=== PATIENT | female | born 1950 | race Caucasian/White ===

== ENCOUNTER 2018-07-08 14:12 | Inpatient (IN) ==
[2018-07-08] MEDS ORDERED: hydrALAZINE HCl Inj 20 MG/ML Vial IV.PUSH ONE (16:46)
[2018-07-08 17:16] LABS: Baso % (Auto) 0.5 % (0.0-2.0); Eos % (Auto) 0.6 % (0.0-4.0); Hematocrit 44.2 % (35.0-46.0); Hemoglobin 15.3 gm/dL (11.6-15.3); Lymph # (Auto) 1.2 th/mm3 (1.0-4.8); Lymph % (Auto) 15.5 % (9.0-44.0); Mean Corpuscular HGB Conc 34.7 % (32.0-36.0); Mean Corpuscular Hemoglobin 33.3 pg (27.0-34.0); Mean Corpuscular Volume 96.1 fL (80.0-100.0); Mono # (Auto) 0.6 th/mm3 (0.0-0.9); Mono % (Auto) 7.8 % (0.0-8.0); Neut % (Auto) 75.6 % (16.0-70.0); Platelet Count 237 th/mm3 (150-450); Red Cell Distribution Width 12.5 % (11.6-17.2); White Blood Count 7.9 th/mm3 (4.0-11.0)
--- NOTE | 2018-07-08 17:27 | XR ---
EXAM DATE: 07/08/2018 5:19 PM EST AGE/SEX: 67 years / Female INDICATIONS: High blood pressure and headache. CLINICAL DATA: This is the patient's initial encounter. Patient reports that signs and symptoms have been present for 1 day and indicates a pain score of 0/10. MEDICAL/SURGICAL HISTORY: Hypertension. None. COMPARISON: No prior exams available for comparison. FINDINGS: The lungs are clear without infiltrate, nodule, or mass. There is no appreciable pleural e ffusion for technique. Heart and mediastinum are unremarkable. CONCLUSION: No acute cardiopulmonary disease. Electronically signed by: Jacquie Anderson MD Board Certified Radiologist 07/08/2018 5:26 PM EST
[2018-07-08 17:38] LABS: Alanine Aminotransferase 24 U/L (10-53); Anion Gap 9 meq/L (5-15); Aspartate Aminotransferase 16 U/L (15-37); Blood Urea Nitrogen 13 mg/dL (7-18); Carbon Dioxide 22.6 meq/L (21.0-32.0); Chloride 106 meq/L (98-107); Glomerular Filtration Rate 42 mL/min (>89); Glucose,Random 101 mg/dL (74-106); Potassium 3.8 meq/L (3.5-5.1); Sodium 138 meq/L (136-145)
[2018-07-08 17:42] LABS: Alkaline Phosphatase 78 U/L (45-117); Total Protein 7.8 g/dL (6.4-8.2)
[2018-07-08 17:46] LABS: Creatine Kinase 81 U/L (26-192)
[2018-07-08] MEDS ORDERED: Metoprolol Inj 5 MG/5 ML Vial IV.PUSH ONE ×2 (18:14→18:32)
--- NOTE | 2018-07-08 18:41 | ED ---
HPI General Chief complaint: Hypertension Stated complaint: headache Time Seen by Provider: 07/08/18 16:34 History of Present Illness HPI narrative: A 67-year-old female with no reported past medical history, presents today with complaints of uncontrolled hypertension. Patient also reports headache in the right side of her head. She denies any photophobia. She denies any nausea vomiting. She states that she was concerned today because she normally does not get headaches. She had her blood pressure checked and was noted to be extremely elevated and she came here to be evaluated. The patient is currently not on any medications. She does not see any primary care doctor. She states she has had difficulty finding a primary care physician. Related Data Previous Rx's Medication Instructions Recorded acetaminophen 650 mg PO Q4H PRN #14 tab 07/13/18 alprazolam [Xanax] 0.25 mg PO HS PRN #7 tab 07/13/18 aspirin 325 mg PO DAILY #30 tab 07/13/18 clonidine HCl [Catapres] 0.1 mg PO Q6H PRN #30 tab 07/13/18 clopidogrel [Plavix] 75 mg PO DAILY #30 tab 07/13/18 lisinopril 20 mg PO DAILY #60 tab 07/13/18 pravastatin 40 mg PO HS #30 tab 07/13/18 sennosides-docusate sodium [Senna 1 tab PO BID #60 tab 07/13/18 Plus] tramadol [Ultram] 50 mg PO Q4H PRN #14 tab 07/13/18 Allergies Allergy/AdvReac Type Severity Reaction Status Date / Time No Known Allergies Allergy Verified 07/13/18 18:15 [facility] Social History Social History Substance History: No History of Abuse Second Hand Smoke Exposure: No Smoking Status: Former smoker How Often Do You Have a Drink Containing Alcohol: 4 or more times a week Recent Travel in [facility] within the Last 8 Weeks: No Immunization History Tetanus Immunization: >5 Years Course Initial Documented Vital Signs Temperature 98.0 F 07/08/18 14:24 Pulse Rate 100 H 07/08/18 14:24 Respiratory Rate 19 07/08/18 14:24 Blood Pressure 243/119 H 07/08/18 14:24 Pulse Oximetry 98 07/08/18 14:24 Last Documented Vital Signs Temperature 97.9 F 07/13/18 16:00 Pulse Rate 69 07/13/18 16:00 Respiratory Rate 18 07/13/18 16:00 Blood Pressure 200/88 H 07/13/18 16:00 Pulse Oximetry 98 07/13/18 16:00 Sign Out Sign Out Data: Patient Sign Out occurred on 07/08/18 at 19:47. Patient's care was discussed, and care was transferred from Glenroy Castillo MD to Bhavana Crooks. Sign Out Comment: Patient presents with uncontrolled hypertension and headache. Patient has abnormal CT showing subacute stroke versus mass. There is an MRI pending at this time. Patient will be signed out to Dr. Crooks. Pending the results of the MRI, patient will either be admitted to the medicine service in the intensive care unit or the regulatory affairs portfolio leader. Last updated by Glenroy Castillo MD at 07/08/18 19:44 Post-Handoff Eval: 67-year-old female was signed out to me to follow-up on her right MRI report. Patient was seen and worked up by the previous ER physician Dr. Castillo. Decision was to admit the patient to the ICU. However I was told that the regulatory affairs portfolio leader Dr. Velasquez wanted an MRI of the brain given the abnormal CT head report. His plan was that if the MRI showed a stroke the patient should be admitted to the hospitalist and if it was a mass than it should be admitted to him. The MRI report just came back and shows a subacute stroke. The hospitalist will admit the patient to the ICU. Medical Decision Making MDM Narrative Medical decision making narrative: 67-year-old female with no history of being treated at this time, presents here with headache and elevated blood pressure. Patient's blood pressure was over 200 systolic and over 100s diastolic. Patient had a head CT that showed what appears to be subacute infarct versus mass with mass-effect. Case was discussed with Dr. Portillo who recommended we admit to the intensive care unit. I spoke with Dr. Velasquez in the intensive care unit he wanted to get an MRI. He spoke with Dr. Portillo and the discussion was that if the patient had a subacute stroke that it would go to Dr. Portillo and if it was a mass it would be admitted to the regulatory affairs portfolio leader service. Case is signed out to Dr. Crooks she will follow-up on the MRI and disc position as above. Medical Screen Exam Complete: Yes Emergency Medical Condition: Yes Differential Diagnosis Differential Diagnosis: Hypertensive urgency versus emergency versus CVA Lab Data Result diagrams: 07/11/18 02:08 07/09/18 05:35 Lab Results 07/08/18 07/08/18 07/09/18 Range/Units 17:00 17:00 05:35 WBC 7.9 6.1 (4.0-11.0) th/mm3 RBC 4.60 4.54 (4.00-5.30) mil/mm3 Hgb 15.3 14.9 (11.6-15.3) gm/dL POC Hgb (Calc) (11.6-15.3) g/dL Hct 44.2 43.6 (35.0-46.0) % POC Hct (35-46.0) % MCV 96.1 96.1 (80.0-100.0) fL MCH 33.3 32.9 (27.0-34.0) pg MCHC 34.7 34.2 (32.0-36.0) % RDW 12.5 12.4 (11.6-17.2) % Plt Count 237 231 (150-450) th/mm3 MPV 9.0 9.1 (7.0-11.0) fL Neut % (Auto) 75.6 H 94.9 H (16.0-70.0) % Lymph % (Auto) 15.5 4.3 L (9.0-44.0) % [place] % (Auto) 7.8 0.7 (0.0-8.0) % Eos % (Auto) 0.6 0.0 (0.0-4.0) % Baso % (Auto) 0.5 0.1 (0.0-2.0) % Neut # (Auto) 6.0 5.8 (1.8-7.7) th/mm3 Lymph # (Auto) 1.2 0.3 L (1.0-4.8) th/mm3 [place] # (Auto) 0.6 0.0 (0.0-0.9) th/mm3 Eos # (Auto) 0.0 0.0 (0.0-0.4) th/mm3 Baso # (Auto) 0.0 0.0 (0.0-0.2) th/mm3 WBC Differential . . Differential Comment Auto diff final Auto diff final PT (9.8-11.6) sec INR Ratio APTT (23.4-31.7) sec Fibrinogen (227-377) mg/dL POC Sodium (137-144) mmol/L Sodium 138 (136-145) meq/L POC Potassium (3.6-5.0) mmol/L Potassium 3.8 (3.5-5.1) meq/L POC Chloride (102-111) mmol/L Chloride 106 (98-107) meq/L Carbon Dioxide 22.6 (21.0-32.0) meq/L Anion Gap 9 (5-15) meq/L POC BUN (5-21) mg/dL BUN 13 (7-18) mg/dL Creatinine 1.26 H (0.50-1.00) mg/dL POC Creatinine (0.6-1.3) mg/dL Estimated GFR 42 L (>89) mL/min POC Glucose (68-110) mg/dl Random Glucose 101 (74-106) mg/dL Hemoglobin A1c (4.3-6.0) % Calcium 9.0 (8.5-10.1) mg/dL Total Bilirubin 0.6 (0.2-1.0) mg/dL AST 16 (15-37) U/L ALT 24 (10-53) U/L Alkaline Phosphatase 78 (45-117) U/L Total Creatine Kinase 81 (26-192) U/L Troponin I Less than 0.02 L (0.02-0.05) ng/mL Total Protein 7.8 (6.4-8.2) g/dL Albumin 4.0 (3.4-5.0) g/dL Triglycerides (42-150) mg/dL Cholesterol (120-200) mg/dL LDL Cholesterol, Calc (0-99) mg/dL HDL Cholesterol (40.0-60.0) mg/dL Cholesterol/HDL Ratio Ratio Blood Type Blood Type Recheck Antibody Screen 07/09/18 07/09/18 07/09/18 Range/Units 05:35 05:35 08:09 WBC (4.0-11.0) th/mm3 RBC (4.00-5.30) mil/mm3 Hgb (11.6-15.3) gm/dL POC Hgb (Calc) (11.6-15.3) g/dL Hct (35.0-46.0) % POC Hct (35-46.0) % MCV (80.0-100.0) fL MCH (27.0-34.0) pg MCHC (32.0-36.0) % RDW (11.6-17.2) % Plt Count (150-450) th/mm3 MPV (7.0-11.0) fL Neut % (Auto) (16.0-70.0) % Lymph % (Auto) (9.0-44.0) % [place] % (Auto) (0.0-8.0) % Eos % (Auto) (0.0-4.0) % Baso % (Auto) (0.0-2.0) % Neut # (Auto) (1.8-7.7) th/mm3 Lymph # (Auto) (1.0-4.8) th/mm3 [place] # (Auto) (0.0-0.9) th/mm3 Eos # (Auto) (0.0-0.4) th/mm3 Baso # (Auto) (0.0-0.2) th/mm3 WBC Differential Differential Comment PT (9.8-11.6) sec INR Ratio APTT (23.4-31.7) sec Fibrinogen (227-377) mg/dL POC Sodium (137-144) mmol/L Sodium 140 (136-145) meq/L POC Potassium (3.6-5.0) mmol/L Potassium 3.7 (3.5-5.1) meq/L POC Chloride (102-111) mmol/L Chloride 108 H (98-107) meq/L Carbon Dioxide 24.4 (21.0-32.0) meq/L Anion Gap 8 (5-15) meq/L POC BUN (5-21) mg/dL BUN 12 (7-18) mg/dL Creatinine 0.96 (0.50-1.00) mg/dL POC Creatinine (0.6-1.3) mg/dL Estimated GFR 58 L (>89) mL/min POC Glucose 143 H (68-110) mg/dl Random Glucose 155 H (74-106) mg/dL Hemoglobin A1c 5.1 (4.3-6.0) % Calcium 9.0 (8.5-10.1) mg/dL Total Bilirubin 0.5 (0.2-1.0) mg/dL AST 15 (15-37) U/L ALT 21 (10-53) U/L Alkaline Phosphatase 69 (45-117) U/L Total Creatine Kinase (26-192) U/L Troponin I (0.02-0.05) ng/mL Total Protein 7.2 D (6.4-8.2) g/dL Albumin 3.7 (3.4-5.0) g/dL Triglycerides 99 (42-150) mg/dL Cholesterol 288 H (120-200) mg/dL LDL Cholesterol, Calc 183 H (0-99) mg/dL HDL Cholesterol 85.0 H (40.0-60.0) mg/dL Cholesterol/HDL Ratio 3.38 Ratio Blood Type Blood Type Recheck Antibody Screen 07/09/18 07/09/18 07/09/18 Range/Units 11:58 17:13 21:33 WBC (4.0-11.0) th/mm3 RBC (4.00-5.30) mil/mm3 Hgb (11.6-15.3) gm/dL POC Hgb (Calc) (11.6-15.3) g/dL Hct (35.0-46.0) % POC Hct (35-46.0) % MCV (80.0-100.0) fL MCH (27.0-34.0) pg MCHC (32.0-36.0) % RDW (11.6-17.2) % Plt Count (150-450) th/mm3 MPV (7.0-11.0) fL Neut % (Auto) (16.0-70.0) % Lymph % (Auto) (9.0-44.0) % [place] % (Auto) (0.0-8.0) % Eos % (Auto) (0.0-4.0) % Baso % (Auto) (0.0-2.0) % Neut # (Auto) (1.8-7.7) th/mm3 Lymph # (Auto) (1.0-4.8) th/mm3 [place] # (Auto) (0.0-0.9) th/mm3 Eos # (Auto) (0.0-0.4) th/mm3 Baso # (Auto) (0.0-0.2) th/mm3 WBC Differential Differential Comment PT (9.8-11.6) sec INR Ratio APTT (23.4-31.7) sec Fibrinogen (227-377) mg/dL POC Sodium (137-144) mmol/L Sodium (136-145) meq/L POC Potassium (3.6-5.0) mmol/L Potassium (3.5-5.1) meq/L POC Chloride (102-111) mmol/L Chloride (98-107) meq/L Carbon Dioxide (21.0-32.0) meq/L Anion Gap (5-15) meq/L POC BUN (5-21) mg/dL BUN (7-18) mg/dL Creatinine (0.50-1.00) mg/dL POC Creatinine (0.6-1.3) mg/dL Estimated GFR (>89) mL/min POC Glucose 121 H 110 114 H (68-110) mg/dl Random Glucose (74-106) mg/dL Hemoglobin A1c (4.3-6.0) % Calcium (8.5-10.1) mg/dL Total Bilirubin (0.2-1.0) mg/dL AST (15-37) U/L ALT (10-53) U/L Alkaline Phosphatase (45-117) U/L Total Creatine Kinase (26-192) U/L Troponin I (0.02-0.05) ng/mL Total Protein (6.4-8.2) g/dL Albumin (3.4-5.0) g/dL Triglycerides (42-150) mg/dL Cholesterol (120-200) mg/dL LDL Cholesterol, Calc (0-99) mg/dL HDL Cholesterol (40.0-60.0) mg/dL Cholesterol/HDL Ratio Ratio Blood Type Blood Type Recheck Antibody Screen 07/10/18 07/10/18 07/10/18 Range/Units 08:21 12:07 17:19 WBC (4.0-11.0) th/mm3 RBC (4.00-5.30) mil/mm3 Hgb (11.6-15.3) gm/dL POC Hgb (Calc) (11.6-15.3) g/dL Hct (35.0-46.0) % POC Hct (35-46.0) % MCV (80.0-100.0) fL MCH (27.0-34.0) pg MCHC (32.0-36.0) % RDW (11.6-17.2) % Plt Count (150-450) th/mm3 MPV (7.0-11.0) fL Neut % (Auto) (16.0-70.0) % Lymph % (Auto) (9.0-44.0) % [place] % (Auto) (0.0-8.0) % Eos % (Auto) (0.0-4.0) % Baso % (Auto) (0.0-2.0) % Neut # (Auto) (1.8-7.7) th/mm3 Lymph # (Auto) (1.0-4.8) th/mm3 [place] # (Auto) (0.0-0.9) th/mm3 Eos # (Auto) (0.0-0.4) th/mm3 Baso # (Auto) (0.0-0.2) th/mm3 WBC Differential Differential Comment PT (9.8-11.6) sec INR Ratio APTT (23.4-31.7) sec Fibrinogen (227-377) mg/dL POC Sodium (137-144) mmol/L Sodium (136-145) meq/L POC Potassium (3.6-5.0) mmol/L Potassium (3.5-5.1) meq/L POC Chloride (102-111) mmol/L Chloride (98-107) meq/L Carbon Dioxide (21.0-32.0) meq/L Anion Gap (5-15) meq/L POC BUN (5-21) mg/dL BUN (7-18) mg/dL Creatinine (0.50-1.00) mg/dL POC Creatinine (0.6-1.3) mg/dL Estimated GFR (>89) mL/min POC Glucose 88 110 102 (68-110) mg/dl Random Glucose (74-106) mg/dL Hemoglobin A1c (4.3-6.0) % Calcium (8.5-10.1) mg/dL Total Bilirubin (0.2-1.0) mg/dL AST (15-37) U/L ALT (10-53) U/L Alkaline Phosphatase (45-117) U/L Total Creatine Kinase (26-192) U/L Troponin I (0.02-0.05) ng/mL Total Protein (6.4-8.2) g/dL Albumin (3.4-5.0) g/dL Triglycerides (42-150) mg/dL Cholesterol (120-200) mg/dL LDL Cholesterol, Calc (0-99) mg/dL HDL Cholesterol (40.0-60.0) mg/dL Cholesterol/HDL Ratio Ratio Blood Type Blood Type Recheck Antibody Screen 07/10/18 07/11/18 07/11/18 Range/Units 20:05 02:02 02:08 WBC 7.1 (4.0-11.0) th/mm3 RBC 4.50 (4.00-5.30) mil/mm3 Hgb 14.9 (11.6-15.3) gm/dL POC Hgb (Calc) (11.6-15.3) g/dL Hct 42.7 (35.0-46.0) % POC Hct (35-46.0) % MCV 94.9 (80.0-100.0) fL MCH 33.0 (27.0-34.0) pg MCHC 34.8 (32.0-36.0) % RDW 12.5 (11.6-17.2) % Plt Count 225 (150-450) th/mm3 MPV 9.0 (7.0-11.0) fL Neut % (Auto) 75.9 H (16.0-70.0) % Lymph % (Auto) 14.4 (9.0-44.0) % [place] % (Auto) 8.0 (0.0-8.0) % Eos % (Auto) 1.3 (0.0-4.0) % Baso % (Auto) 0.4 (0.0-2.0) % Neut # (Auto) 5.4 (1.8-7.7) th/mm3 Lymph # (Auto) 1.0 (1.0-4.8) th/mm3 [place] # (Auto) 0.6 (0.0-0.9) th/mm3 Eos # (Auto) 0.1 (0.0-0.4) th/mm3 Baso # (Auto) 0.0 (0.0-0.2) th/mm3 WBC Differential . Differential Comment Auto diff final PT (9.8-11.6) sec INR Ratio APTT (23.4-31.7) sec Fibrinogen (227-377) mg/dL POC Sodium (137-144) mmol/L Sodium (136-145) meq/L POC Potassium (3.6-5.0) mmol/L Potassium (3.5-5.1) meq/L POC Chloride (102-111) mmol/L Chloride (98-107) meq/L Carbon Dioxide (21.0-32.0) meq/L Anion Gap (5-15) meq/L POC BUN (5-21) mg/dL BUN (7-18) mg/dL Creatinine (0.50-1.00) mg/dL POC Creatinine (0.6-1.3) mg/dL Estimated GFR (>89) mL/min POC Glucose 92 115 H (68-110) mg/dl Random Glucose (74-106) mg/dL Hemoglobin A1c (4.3-6.0) % Calcium (8.5-10.1) mg/dL Total Bilirubin (0.2-1.0) mg/dL AST (15-37) U/L ALT (10-53) U/L Alkaline Phosphatase (45-117) U/L Total Creatine Kinase (26-192) U/L Troponin I (0.02-0.05) ng/mL Total Protein (6.4-8.2) g/dL Albumin (3.4-5.0) g/dL Triglycerides (42-150) mg/dL Cholesterol (120-200) mg/dL LDL Cholesterol, Calc (0-99) mg/dL HDL Cholesterol (40.0-60.0) mg/dL Cholesterol/HDL Ratio Ratio Blood Type Blood Type Recheck Antibody Screen 07/11/18 07/11/18 07/11/18 Range/Units 02:08 02:08 02:08 WBC (4.0-11.0) th/mm3 RBC (4.00-5.30) mil/mm3 Hgb (11.6-15.3) gm/dL POC Hgb (Calc) 14.3 (11.6-15.3) g/dL Hct (35.0-46.0) % POC Hct 42.0 (35-46.0) % MCV (80.0-100.0) fL MCH (27.0-34.0) pg MCHC (32.0-36.0) % RDW (11.6-17.2) % Plt Count (150-450) th/mm3 MPV (7.0-11.0) fL Neut % (Auto) (16.0-70.0) % Lymph % (Auto) (9.0-44.0) % [place] % (Auto) (0.0-8.0) % Eos % (Auto) (0.0-4.0) % Baso % (Auto) (0.0-2.0) % Neut # (Auto) (1.8-7.7) th/mm3 Lymph # (Auto) (1.0-4.8) th/mm3 [place] # (Auto) (0.0-0.9) th/mm3 Eos # (Auto) (0.0-0.4) th/mm3 Baso # (Auto) (0.0-0.2) th/mm3 WBC Differential Differential Comment PT 9.6 L (9.8-11.6) sec INR 0.9 Ratio APTT 25.4 (23.4-31.7) sec Fibrinogen 309 (227-377) mg/dL POC Sodium 139 (137-144) mmol/L Sodium (136-145) meq/L POC Potassium 3.6 (3.6-5.0) mmol/L Potassium (3.5-5.1) meq/L POC Chloride 103 (102-111) mmol/L Chloride (98-107) meq/L Carbon Dioxide (21.0-32.0) meq/L Anion Gap (5-15) meq/L POC BUN 11 (5-21) mg/dL BUN (7-18) mg/dL Creatinine (0.50-1.00) mg/dL POC Creatinine 1.0 (0.6-1.3) mg/dL Estimated GFR (>89) mL/min POC Glucose 111 H (68-110) mg/dl Random Glucose (74-106) mg/dL Hemoglobin A1c (4.3-6.0) % Calcium (8.5-10.1) mg/dL Total Bilirubin (0.2-1.0) mg/dL AST (15-37) U/L ALT (10-53) U/L Alkaline Phosphatase (45-117) U/L Total Creatine Kinase 71 (26-192) U/L Troponin I Less than 0.02 L (0.02-0.05) ng/mL Total Protein (6.4-8.2) g/dL Albumin (3.4-5.0) g/dL Triglycerides (42-150) mg/dL Cholesterol (120-200) mg/dL LDL Cholesterol, Calc (0-99) mg/dL HDL Cholesterol (40.0-60.0) mg/dL Cholesterol/HDL Ratio Ratio Blood Type B Positive Blood Type Recheck Required Antibody Screen Negative 07/11/18 07/11/18 07/11/18 Range/Units 07:28 11:21 16:36 WBC (4.0-11.0) th/mm3 RBC (4.00-5.30) mil/mm3 Hgb (11.6-15.3) gm/dL POC Hgb (Calc) (11.6-15.3) g/dL Hct (35.0-46.0) % POC Hct (35-46.0) % MCV (80.0-100.0) fL MCH (27.0-34.0) pg MCHC (32.0-36.0) % RDW (11.6-17.2) % Plt Count (150-450) th/mm3 MPV (7.0-11.0) fL Neut % (Auto) (16.0-70.0) % Lymph % (Auto) (9.0-44.0) % [place] % (Auto) (0.0-8.0) % Eos % (Auto) (0.0-4.0) % Baso % (Auto) (0.0-2.0) % Neut # (Auto) (1.8-7.7) th/mm3 Lymph # (Auto) (1.0-4.8) th/mm3 [place] # (Auto) (0.0-0.9) th/mm3 Eos # (Auto) (0.0-0.4) th/mm3 Baso # (Auto) (0.0-0.2) th/mm3 WBC Differential Differential Comment PT (9.8-11.6) sec INR Ratio APTT (23.4-31.7) sec Fibrinogen (227-377) mg/dL POC Sodium (137-144) mmol/L Sodium (136-145) meq/L POC Potassium (3.6-5.0) mmol/L Potassium (3.5-5.1) meq/L POC Chloride (102-111) mmol/L Chloride (98-107) meq/L Carbon Dioxide (21.0-32.0) meq/L Anion Gap (5-15) meq/L POC BUN (5-21) mg/dL BUN (7-18) mg/dL Creatinine (0.50-1.00) mg/dL POC Creatinine (0.6-1.3) mg/dL Estimated GFR (>89) mL/min POC Glucose 102 102 102 (68-110) mg/dl Random Glucose (74-106) mg/dL Hemoglobin A1c (4.3-6.0) % Calcium (8.5-10.1) mg/dL Total Bilirubin (0.2-1.0) mg/dL AST (15-37) U/L ALT (10-53) U/L Alkaline Phosphatase (45-117) U/L Total Creatine Kinase (26-192) U/L Troponin I (0.02-0.05) ng/mL Total Protein (6.4-8.2) g/dL Albumin (3.4-5.0) g/dL Triglycerides (42-150) mg/dL Cholesterol (120-200) mg/dL LDL Cholesterol, Calc (0-99) mg/dL HDL Cholesterol (40.0-60.0) mg/dL Cholesterol/HDL Ratio Ratio Blood Type Blood Type Recheck Antibody Screen 07/11/18 07/12/18 07/12/18 Range/Units 22:04 07:15 11:12 WBC (4.0-11.0) th/mm3 RBC (4.00-5.30) mil/mm3 Hgb (11.6-15.3) gm/dL POC Hgb (Calc) (11.6-15.3) g/dL Hct (35.0-46.0) % POC Hct (35-46.0) % MCV (80.0-100.0) fL MCH (27.0-34.0) pg MCHC (32.0-36.0) % RDW (11.6-17.2) % Plt Count (150-450) th/mm3 MPV (7.0-11.0) fL Neut % (Auto) (16.0-70.0) % Lymph % (Auto) (9.0-44.0) % [place] % (Auto) (0.0-8.0) % Eos % (Auto) (0.0-4.0) % Baso % (Auto) (0.0-2.0) % Neut # (Auto) (1.8-7.7) th/mm3 Lymph # (Auto) (1.0-4.8) th/mm3 [place] # (Auto) (0.0-0.9) th/mm3 Eos # (Auto) (0.0-0.4) th/mm3 Baso # (Auto) (0.0-0.2) th/mm3 WBC Differential Differential Comment PT (9.8-11.6) sec INR Ratio APTT (23.4-31.7) sec Fibrinogen (227-377) mg/dL POC Sodium (137-144) mmol/L Sodium (136-145) meq/L POC Potassium (3.6-5.0) mmol/L Potassium (3.5-5.1) meq/L POC Chloride (102-111) mmol/L Chloride (98-107) meq/L Carbon Dioxide (21.0-32.0) meq/L Anion Gap (5-15) meq/L POC BUN (5-21) mg/dL BUN (7-18) mg/dL Creatinine (0.50-1.00) mg/dL POC Creatinine (0.6-1.3) mg/dL Estimated GFR (>89) mL/min POC Glucose 99 92 102 (68-110) mg/dl Random Glucose (74-106) mg/dL Hemoglobin A1c (4.3-6.0) % Calcium (8.5-10.1) mg/dL Total Bilirubin (0.2-1.0) mg/dL AST (15-37) U/L ALT (10-53) U/L Alkaline Phosphatase (45-117) U/L Total Creatine Kinase (26-192) U/L Troponin I (0.02-0.05) ng/mL Total Protein (6.4-8.2) g/dL Albumin (3.4-5.0) g/dL Triglycerides (42-150) mg/dL Cholesterol (120-200) mg/dL LDL Cholesterol, Calc (0-99) mg/dL HDL Cholesterol (40.0-60.0) mg/dL Cholesterol/HDL Ratio Ratio Blood Type Blood Type Recheck Antibody Screen 07/12/18 07/12/18 07/13/18 Range/Units 16:13 21:16 07:45 WBC (4.0-11.0) th/mm3 RBC (4.00-5.30) mil/mm3 Hgb (11.6-15.3) gm/dL POC Hgb (Calc) (11.6-15.3) g/dL Hct (35.0-46.0) % POC Hct (35-46.0) % MCV (80.0-100.0) fL MCH (27.0-34.0) pg MCHC (32.0-36.0) % RDW (11.6-17.2) % Plt Count (150-450) th/mm3 MPV (7.0-11.0) fL Neut % (Auto) (16.0-70.0) % Lymph % (Auto) (9.0-44.0) % [place] % (Auto) (0.0-8.0) % Eos % (Auto) (0.0-4.0) % Baso % (Auto) (0.0-2.0) % Neut # (Auto) (1.8-7.7) th/mm3 Lymph # (Auto) (1.0-4.8) th/mm3 [place] # (Auto) (0.0-0.9) th/mm3 Eos # (Auto) (0.0-0.4) th/mm3 Baso # (Auto) (0.0-0.2) th/mm3 WBC Differential Differential Comment PT (9.8-11.6) sec INR Ratio APTT (23.4-31.7) sec Fibrinogen (227-377) mg/dL POC Sodium (137-144) mmol/L Sodium (136-145) meq/L POC Potassium (3.6-5.0) mmol/L Potassium (3.5-5.1) meq/L POC Chloride (102-111) mmol/L Chloride (98-107) meq/L Carbon Dioxide (21.0-32.0) meq/L Anion Gap (5-15) meq/L POC BUN (5-21) mg/dL BUN (7-18) mg/dL Creatinine (0.50-1.00) mg/dL POC Creatinine (0.6-1.3) mg/dL Estimated GFR (>89) mL/min POC Glucose 78 96 80 (68-110) mg/dl Random Glucose (74-106) mg/dL Hemoglobin A1c (4.3-6.0) % Calcium (8.5-10.1) mg/dL Total Bilirubin (0.2-1.0) mg/dL AST (15-37) U/L ALT (10-53) U/L Alkaline Phosphatase (45-117) U/L Total Creatine Kinase (26-192) U/L Troponin I (0.02-0.05) ng/mL Total Protein (6.4-8.2) g/dL Albumin (3.4-5.0) g/dL Triglycerides (42-150) mg/dL Cholesterol (120-200) mg/dL LDL Cholesterol, Calc (0-99) mg/dL HDL Cholesterol (40.0-60.0) mg/dL Cholesterol/HDL Ratio Ratio Blood Type Blood Type Recheck Antibody Screen 07/13/18 07/13/18 Range/Units 11:15 17:12 WBC (4.0-11.0) th/mm3 RBC (4.00-5.30) mil/mm3 Hgb (11.6-15.3) gm/dL POC Hgb (Calc) (11.6-15.3) g/dL Hct (35.0-46.0) % POC Hct (35-46.0) % MCV (80.0-100.0) fL MCH (27.0-34.0) pg MCHC (32.0-36.0) % RDW (11.6-17.2) % Plt Count (150-450) th/mm3 MPV (7.0-11.0) fL Neut % (Auto) (16.0-70.0) % Lymph % (Auto) (9.0-44.0) % [place] % (Auto) (0.0-8.0) % Eos % (Auto) (0.0-4.0) % Baso % (Auto) (0.0-2.0) % Neut # (Auto) (1.8-7.7) th/mm3 Lymph # (Auto) (1.0-4.8) th/mm3 [place] # (Auto) (0.0-0.9) th/mm3 Eos # (Auto) (0.0-0.4) th/mm3 Baso # (Auto) (0.0-0.2) th/mm3 WBC Differential Differential Comment PT (9.8-11.6) sec INR Ratio APTT (23.4-31.7) sec Fibrinogen (227-377) mg/dL POC Sodium (137-144) mmol/L Sodium (136-145) meq/L POC Potassium (3.6-5.0) mmol/L Potassium (3.5-5.1) meq/L POC Chloride (102-111) mmol/L Chloride (98-107) meq/L Carbon Dioxide (21.0-32.0) meq/L Anion Gap (5-15) meq/L POC BUN (5-21) mg/dL BUN (7-18) mg/dL Creatinine (0.50-1.00) mg/dL POC Creatinine (0.6-1.3) mg/dL Estimated GFR (>89) mL/min POC Glucose 78 79 (68-110) mg/dl Random Glucose (74-106) mg/dL Hemoglobin A1c (4.3-6.0) % Calcium (8.5-10.1) mg/dL Total Bilirubin (0.2-1.0) mg/dL AST (15-37) U/L ALT (10-53) U/L Alkaline Phosphatase (45-117) U/L Total Creatine Kinase (26-192) U/L Troponin I (0.02-0.05) ng/mL Total Protein (6.4-8.2) g/dL Albumin (3.4-5.0) g/dL Triglycerides (42-150) mg/dL Cholesterol (120-200) mg/dL LDL Cholesterol, Calc (0-99) mg/dL HDL Cholesterol (40.0-60.0) mg/dL Cholesterol/HDL Ratio Ratio Blood Type Blood Type Recheck Antibody Screen Imaging Data Radiologist's impression: Chest X-Ray 07/08/18 16:46 CONCLUSION: No acute cardiopulmonary disease. Head CT 07/08/18 16:46 CONCLUSION: Low density at the lateral right parietal lobe most closely resembling an area of subacute infarction. An underlying mass cannot be excluded. This area could be better characterized with a MRI examination with contrast. . . Head MRI 07/08/18 19:15 CONCLUSION: Acute infarction involving the posterior right middle cerebral artery territory. Abdomen X-Ray 07/08/18 19:24 CONCLUSION: Negative KUB. No metallic densities are seen. Carotid Doppler Study 07/09/18 10:12 CONCLUSION: No evidence of flow-limiting carotid stenosis. Head MRA 07/09/18 10:12 CONCLUSION: 1. There is nonfilling and irregularity of the distal right middle cerebral artery and right proximal posterior cerebral artery. Head MRI 07/11/18 00:00 CONCLUSION: 1. There is an evolving subacute infarct of the right posterior cerebral artery distribution. The associated restricted diffusion is slightly larger in the interim. There is approximately 4 mm of leftward midline shift. 2. Mild chronic white matter signal changes are stable. Head CT 07/11/18 02:06 CONCLUSION: 1. Expected evolution of the right posterior MCA and right basal ganglia infarcts. 2. 6 mm right to left subfalcine shift secondary to be associated edema in the right cerebral hemisphere. 3. No superimposed acute intracranial process. Report was called by Dr. Torres to Dr. Connell at 0228 hours. Discharge Plan Discharge Disposition Patient Disposition: ED Admit(ED Internal Use Only) Discharge Order Discharge Orders: Discharge Order (Routine); Ordered 07/13/18 Ordered By: Na Nelson ED Use Only Admit Order (Routine); Ordered 07/08/18 Ordered By: Bhavana Crooks Discharge Details Anticipated Discharge Date: 07/13/18 Diagnosis: Hypertensive emergency, Abnormal CT of the head, Renal insufficiency Physicians Team ED Provider: Bhavana Crooks Primary Care Provider: UNKNOWN, Attending Provider: Daina Hill Other Providers: Kevin Connell Status ED Status: Left Department Discharge Information Discharge Date/Time: 07/09/18 00:00
--- NOTE | 2018-07-08 18:52 | CT ---
EXAM DATE: 07/08/2018 6:23 PM EST AGE/SEX: 67 years / Female INDICATIONS: Headache and dizziness CLINICAL DATA: This is the patient's initial encounter. Patient reports that signs and symptoms have been present for 1 day and indicates a pain score of 8/10. MEDICAL/SURGICAL HISTORY: Hypertension. None. RADIATION DOSE: 35.68 CTDI (mGy) COMPARISON: No prior exams available for comparison. TECHNIQUE: CT of the head without contrast. Using automated exposure control and adjustment of the mA and/or kV according to patient size, radiation dose was kept as low as reasonably achievable to ob tain optimal diagnostic quality images. DICOM format image data is available electronically for revi ew and comparison. FINDINGS: Cerebrum: There is low density seen in the right parietal region with mass effect and effacement of the sulci in this region. No hemorrhage is seen. The ventricles are normal for age. No evidence of m idline shift. No extraaxial fluid collections are seen. Posterior Fossa: The cerebellum and brainstem are intact. The 4th ventricle is midline. The cerebe llopontine angle is unremarkable. Extracranial: The visualized portion of the orbits is intact. Skull: The calvaria is intact. No evidence of skull fracture. CONCLUSION: Low density at the lateral right parietal lobe most closely resembling an area of subacute infarction . An underlying mass cannot be excluded. This area could be better characterized with a MRI examinati on with contrast. . . Electronically signed by: Ron Rodriguez MD Board Certified Radiologist 07/08/2018 6:50 PM EST
--- NOTE | 2018-07-08 19:32 | ECG ---
Date Performed: 07/08/2018 Time Performed: 14:39:57 PTAGE: 67 years EKG: Sinus rhythm POSSIBLE LEFT ATRIAL ENLARGEMENT NONSPECIFIC ST & T-WAVE ABNORMALITY BORDERLINE ECG Compared to prio r electrocardiogram, at most borderline nonspecific ST T-wave changes are present. PREVIOUS TRACING : 05/15/2008 02.12 DOCTOR: Dell Zarate Interpretating Date/Time 07/08/2018 19:31:52
--- NOTE | 2018-07-08 20:15 | XR ---
EXAM DATE: 07/08/2018 8:11 PM EST AGE/SEX: 67 years / Female INDICATIONS: MRI clearance. CLINICAL DATA: This is the patient's initial encounter. Patient reports that signs and symptoms have been present for 1 day and indicates a pain score of 0/10. MEDICAL/SURGICAL HISTORY: . Unobtainable . Unobtainable COMPARISON: No prior exams available for comparison. FINDINGS: The abdominal bowel gas pattern is normal. No abnormal masses, calcifications, or organomegaly is s een. The osseous structures are unremarkable. CONCLUSION: Negative KUB. No metallic densities are seen. Electronically signed by: Ron Rodriguez MD Board Certified Radiologist 07/08/2018 8:14 PM EST
[2018-07-08] MEDS ORDERED: Dexamethasone Inj 20 MG/5 ML Vial IV.PUSH ONE (21:30)
[2018-07-08] MEDS ORDERED: Acetaminophen 325 MG Tablet PO ONE (21:30)
[2018-07-08] MEDS ORDERED: LORazepam 1 MG Tablet PO ONE (21:57)
[2018-07-08] MEDS ORDERED: Gadobutrol PF 10 MMOL/10 ML Vial (for RAD) IV.SIG ONE (22:34)
--- NOTE | 2018-07-08 22:58 | MR ---
EXAM DATE: 07/08/2018 10:42 PM EST AGE/SEX: 67 years / Female INDICATIONS: CVA. Possible mass. CLINICAL DATA: This is the patient's initial encounter. Patient reports that signs and symptoms have been present for 1 day and indicates a pain score of 4/10. MEDICAL/SURGICAL HISTORY: Hypertension. . Left knee sx. COMPARISON: [facility] [place], CT HEAD W/O CONTRAST, 07/08/2018. . TECHNIQUE: Multiplanar, multisequence examination of the brain was performed without and with 8 ml Ga davist (gadobutrol) contrast as a single exam dose. FINDINGS: Cerebrum: There is an area of acute infarction involving the right parietal lobe and extending into the superior posterior right temporal lobes. There is also an oval area of acute infarction at the an terior right basal ganglia. The ventricles are normal for age. No evidence of midline shift, mass le matthew, hemorrhage. No extraaxial fluid collections are seen. The pituitary gland and suprasellar cis tern are normal in configuration. White Matter: No significant signal abnormalities are seen in the white matter. Posterior Fossa: The cerebellum and brainstem are intact. The 4th ventricle is midline. The cerebel lopontine angle is unremarkable. The cerebellar tonsils are normal in position. Diffusion Imaging: No focal areas of restricted diffusion are seen. No evidence of acute infarction . Extracranial: The visualized portions of the orbits and paranasal sinuses are unremarkable. Post Contrast: No abnormal areas of parenchymal or dural enhancement. No evidence of blood-brain ba rrier breakdown. CONCLUSION: Acute infarction involving the posterior right middle cerebral artery territory. Electronically signed by: Ron Rodriguez MD Board Certified Radiologist 07/08/2018 10:57 PM EST
[2018-07-08] MEDS ORDERED: Dextrose 50% in Water 50 ML Vial IV.PUSH PRN (23:08)
[2018-07-08] MEDS ORDERED: Acetaminophen 325 MG Tablet PO PRN (23:08)
[2018-07-08] MEDS ORDERED: Bisacodyl 10 MG Supp RECTAL PRN (23:08)
--- NOTE | 2018-07-08 23:11 | P.HPIM ---
History of Present Illness Primary Care Physician: UNKNOWN History of Present Illness: This is a 67-year-old female with a PMH of HTN who presented to the ER with complaints of severe headache. States headache located on the right, severe, 10/10, non-radiating, no visual changes but associated w/ few episodes of nausea/vomiting. No h/o similar symptoms. Also notes left hand weakness, unable to grasp objects earlier today, however resolved by the time EMS arrived. On arrival, BP 243/119, HR 100, O2 sat 98% on RA, Afebrile. S/p Hydralazine and Lopressor x2 in ER. CBC unremarkable. Gotten 1.26, no previous labs for comparison. CT Head with low density at lateral right parietal lobe possibly subacute infarct versus underlying mass. MRI Head acute infarct involving posterior right middle cerebral artery. CXR with no acute findings. Diagnosis (1) CVA (cerebral vascular accident): (2) Hypertensive emergency: (3) Intractable headache: Inpatient Certification Inpatient Certification: I certify that the inpatient services were ordered in accordance with Medicare regulations governing the order. This includes certification that hospital inpatient services are reasonable and necessary and in the case of services not specified as inpatient-only under 42 CFR 419.22(n), that they are appropriately provided as inpatient services in accordance to with the 2-midnight benchmark under 43 CFR 412.3(e) Estimated Total Length of Stay (Days): 2 Plans for Post Hospital Care: Not yet determined Review of Systems PAST FAMILY HISTORY: Reviewed. No h/o DM or CAD Review of Systems: all other systems reviewed are negative PMFSH Medical History Medical History Hypertension (Acute) Tears of meniscus and ACL of left knee (Acute) Social History Social History Substance History: No History of Abuse Smoking Status: Never smoker How Often Do You Have a Drink Containing Alcohol: 2 to 3 times a week Recent Travel in [facility] within the Last 8 Weeks: No Recent Out of Country Travel within the Last 8 Weeks: No Immunization History Tetanus Immunization: >5 Years Medications and Allergies Allergies Allergy/AdvReac Type Severity Reaction Status Date / Time codeine Allergy Severe RASH Verified 07/08/18 16:58 Home Medications Medication Instructions Recorded Confirmed Type No Known Home Medications 07/08/18 07/08/18 History Active Medications: Active Medications Sodium Chloride (Ns Flush) 2 ml IV.FLUSH PRN PRN PRN Reason: FLUSH AFTER USING IV ACCESS Physical Exam Vital signs: Vital Signs 07/08/18 14:24 07/08/18 16:26 07/08/18 16:46 Temperature 98.0 F Pulse Rate 100 H 81 75 Respiratory Rate 19 18 Blood Pressure 243/119 H 199/97 H Pulse Oximetry 98 100 100 07/08/18 17:00 07/08/18 17:15 07/08/18 17:29 Temperature Pulse Rate 75 98 H 105 H Respiratory Rate 18 18 20 Blood Pressure 211/113 H 225/88 H 188/94 H Pulse Oximetry 100 98 98 07/08/18 18:00 07/08/18 19:30 07/08/18 22:13 Temperature Pulse Rate 98 H 81 76 Respiratory Rate 18 20 20 Blood Pressure 201/97 H 156/71 H 206/96 H Pulse Oximetry 99 98 Intake & Output 07/08/18 07/08/18 07/09/18 06:59 18:59 06:59 Weight 79.379 kg Narrative: PE: GENERAL: Pleasant middle-aged white female in no acute distress. SKIN: Focused skin assessment warm and dry. HEENT: PERRLA, EOMI. No scleral icterus or conjunctival pallor. No lid lag or facial droop. CARDIOVASCULAR: Regular rate and rhythm. No obvious murmurs to auscultation. No chest tenderness to palpation. RESPIRATORY: No obvious rhonchi or wheezing. Clear to auscultation. Breath sounds equal bilaterally. GASTROINTESTINAL: Abdomen soft, non-tender, nondistended. BS normal. MUSCULOSKELETAL: Extremities without clubbing, cyanosis, or edema. No obvious deformities. NEUROLOGICAL: Awake, alert and oriented x4. No focal neurologic deficits. Moving both upper and lower extremities spontaneously. PSYCHIATRIC: Appropriate mood and affect. Insight and judgment normal. Results Labs CBC & Chem 7: 07/08/18 17:00 07/08/18 17:00 Imaging Impressions Chest X-Ray 07/08/18 16:46 CONCLUSION: No acute cardiopulmonary disease. Head CT 07/08/18 16:46 CONCLUSION: Low density at the lateral right parietal lobe most closely resembling an area of subacute infarction. An underlying mass cannot be excluded. This area could be better characterized with a MRI examination with contrast. . . Head MRI 07/08/18 19:15 CONCLUSION: Acute infarction involving the posterior right middle cerebral artery territory. Abdomen X-Ray 07/08/18 19:24 CONCLUSION: Negative KUB. No metallic densities are seen. Caprini VTE Risk Assessment Caprini VTE Risk Assessment: No/Low Risk (score <= 1) Caprini Risk Assessment Model: Point Value = 1 Point Value = 2 Point Value = 3 Point Value = 5 Age 41-60 Minor surgery BMI > 25 kg/m2 Swollen legs Varicose veins or History of unexplained or recurrent spontaneous Oral contraceptives or hormone replacement Sepsis (< 1 month) Serious lung disease, including pneumonia (< 1 month) Abnormal pulmonary function Acute myocardial infarction Congestive heart failure (< 1 month) History of inflammatory bowel disease Medical patient at bed rest Age 61-74 Arthroscopic surgery Major open surgery (> 45 min) Laparoscopic surgery (> 45 min) Malignancy Confined to bed (> 72 hours) Immobilizing plaster cast Central venous access Age >= 75 History of VTE Family history of VTE Factor V Leiden Prothrombin [id number] Lupus anticoagulant Anticardiolipin antibodies Elevated serum homocysteine Heparin-induced thrombocytopenia Other congenital or acquired thrombophilia Stroke (< 1 month) Elective arthroplasty Hip, pelvis, or leg fracture Acute spinal cord injury (< 1 month) Prophylaxis Regimen: Total Risk Factor Score Risk Level Prophylaxis Regimen 0-1 Low Early ambulation 2 Moderate Order ONE of the following: *Sequential Compression Device (SCD) *Heparin 5000 units SQ BID 3-4 Higher Order ONE of the following medications: *Heparin 5000 units SQ TID *Enoxaparin/Lovenox 40 mg SQ daily (WT < 150 kg, CrCl > 30 mL/min) *Enoxaparin/Lovenox 30 mg SQ daily (WT < 150 kg, CrCl > 10-29 mL/min) *Enoxaparin/Lovenox 30 mg SQ BID (WT < 150 kg, CrCl > 30 mL/min) AND/OR *Sequential Compression Device (SCD) 5 or more Highest Order ONE of the following medications: *Heparin 5000 units SQ TID (Preferred with Epidurals) *Enoxaparin/Lovenox 40 mg SQ daily (WT < 150 kg, CrCl > 30 mL/min) *Enoxaparin/Lovenox 30 mg SQ daily (WT < 150 kg, CrCl > 10-29 mL/min) *Enoxaparin/Lovenox 30 mg SQ BID (WT < 150 kg, CrCl > 30 mL/min) AND *Sequential Compression Device (SCD) Assessment and Plan (1) CVA (cerebral vascular accident): Code(s): I63.9 - Cerebral infarction, unspecified Status: Acute (2) Hypertensive emergency: Code(s): I16.1 - Hypertensive emergency Status: Acute (3) Intractable headache: Code(s): R51 - Headache Status: Acute Plan A/P: 1. CVA: acute left hand weakness, resolved. CT Head w/ right parietal low density area, infarct vs mass. MRI Head w/ acute infarct right parietal region , no h/o CVA. BP 200's, antihypertensives for BP >220. Consult Neurology for further recommendations. ASA, Statin. 2. Hypertensive Urgency: BP 240's on arrival, s/p Hydralazine and Lopressor x2 in ER, BP 200's now, will allow for permissive HTN in light of acute CVA, antihypertensives for BP >220. 3. Intractable Headache: secondary to above, analgesics as needed. 4. DVT Prophylaxis: SCD/Teds 5. Social work for d/c planning as needed. 6. Case discussed w/ ER physician at length, labs/records/imaging reviewed by me.
[2018-07-09] MEDS: Morphine Sulfate Inj 2 MG/ML Vial IV.PUSH PRN ×4 (01:08→21:44)
[2018-07-09] MEDS: Sod Chloride 0.9% Inj 1,000 ML IV.CONT SCH ×3 (01:09→13:35)
[2018-07-09 06:17] LABS: Baso % (Auto) 0.1 % (0.0-2.0); Hematocrit 43.6 % (35.0-46.0); Hemoglobin 14.9 gm/dL (11.6-15.3); Lymph # (Auto) 0.3 th/mm3 (1.0-4.8); Lymph % (Auto) 4.3 % (9.0-44.0); Mean Corpuscular HGB Conc 34.2 % (32.0-36.0); Mean Corpuscular Hemoglobin 32.9 pg (27.0-34.0); Mean Corpuscular Volume 96.1 fL (80.0-100.0); Mean Platelet Volume 9.1 fL (7.0-11.0); Mono % (Auto) 0.7 % (0.0-8.0); Neut # (Auto) 5.8 th/mm3 (1.8-7.7); Neut % (Auto) 94.9 % (16.0-70.0); Platelet Count 231 th/mm3 (150-450); Red Blood Count 4.54 mil/mm3 (4.00-5.30); Red Cell Distribution Width 12.4 % (11.6-17.2); White Blood Count 6.1 th/mm3 (4.0-11.0)
[2018-07-09 06:58] LABS: Albumin 3.7 g/dL (3.4-5.0); Anion Gap 8 meq/L (5-15); Aspartate Aminotransferase 15 U/L (15-37); Blood Urea Nitrogen 12 mg/dL (7-18); Carbon Dioxide 24.4 meq/L (21.0-32.0); Chloride 108 meq/L (98-107); Cholesterol 288 mg/dL (120-200); Glomerular Filtration Rate 58 mL/min (>89); Glucose,Random 155 mg/dL (74-106); Potassium 3.7 meq/L (3.5-5.1); Sodium 140 meq/L (136-145)
[2018-07-09 07:02] LABS: Alanine Aminotransferase 21 U/L (10-53); Alkaline Phosphatase 69 U/L (45-117); Chol/HDL Ratio 3.38 Ratio; LDL Cholesterol,Calculated 183 mg/dL (0-99); Total Protein 7.2 g/dL (6.4-8.2); Triglycerides 99 mg/dL (42-150)
[2018-07-09] MEDS ORDERED: LORazepam 1 MG Tablet PO PRN (07:45)
[2018-07-09] MEDS ORDERED: Haloperidol Inj 5 MG/ML Ampul IV.PUSH PRN (07:45)
[2018-07-09] MEDS: Insulin NovoLOG Aspart Correctional Sugar Inj SQ SCH ×4 (08:10→21:33)
[2018-07-09] MEDS: Senna/Docusate Sodium 8.6/50 MG Tablet PO SCH ×2 (08:11→21:42)
--- NOTE | 2018-07-09 10:11 | P.CONNEU ---
History of Present Illness Service: Neurology Primary Care Provider: UNKNOWN Chief Complaint: Stroke History of Present Illness: 67-year-old female admitted for severe hypertension stroke symptoms with left arm weakness. MRI brain scan positive for right MCA stroke. Patient is retired does not smoke no history of TIA or stroke. States she does not take any medication in fact does not believe in prescription medications. States her PCP recently "dropped her". Denies any history of A. fib, hypercoagulable state or any head or neck trauma. Blood pressure 249/119. LDL 183 Review of Systems All other systems reviewed negative except as stated in HPI [facility] - History History Provided By: Patient - Medical History Medical History: Medical History (Last Reviewed 07/09/18 @ 08:03 by Kacy Duke) Hypertension Tears of meniscus and ACL of left knee - Tobacco History Second Hand Smoke Exposure: No Smoking Status: Never smoker - Alcohol History How Often Do You Have a Drink Containing Alcohol: 4 or more times a week - Substance Use History Substance History: No History of Abuse - Travel History Recent Travel in the [place] Within the Last 8 Weeks: No Recent Travel Out of the Country Within the Last 8 Weeks: No - Immunization History Tetanus Immunization: >5 Years Medications and Allergies Active Medications: Active Medications Acetaminophen (Tylenol) 650 mg PO Q4H PRN PRN Reason: Temp > 100.4 Al Hydroxide/Mg Hydroxide (Milk Of Marlo Liq) 30 ml PO Q12H PRN PRN Reason: Mild Constipation Aspirin (Aspirin Chew) 81 mg PO DAILY [facility] Last Admin: 07/09/18 08:11 Dose: 81 mg Bisacodyl (Dulcolax Supp) 10 mg RECTAL DAILY PRN PRN Reason: SEVERE CONSITIPATION Dextrose (D50w Vial) 50 ml IV.PUSH UNSCH PRN PRN Reason: PER HYPOGLYCEMIA PROTOCOL Enalaprilat (Vasotec Inj) 1.25 mg IV.PUSH Q4H PRN PRN Reason: For SBP > 220 or DBP > 120 Flumazenil (Romazicon Inj) 0.2 mg IV.PUSH Q1M PRN PRN Reason: OVERSEDATION Glucagon (Glucagon Inj) 1 mg OTHER UNSCH PRN PRN Reason: for Hypoglycemia Protocol Sodium Chloride (Ns Inj) 1,000 mls @ 70 mls/hr IV.CONT .[id number] [facility] Last Admin: 07/09/18 01:09 Dose: 70 mls/hr Insulin Aspart (Novolog Insulin Correctional Sugar Inj) 0 unit SQ ACHS [facility]; Protocol Last Admin: 07/09/18 08:10 Dose: Not Given Lactulose (Lactulose Liq) 30 ml PO DAILY PRN PRN Reason: SEVERE CONSITIPATION Lorazepam (Ativan) 1 mg PO Q4H PRN PRN Reason: for CIWA 8-10 Lorazepam (Ativan Inj) 2 mg IV.PUSH Q2H PRN PRN Reason: for CIWA 11-14 Lorazepam (Ativan Inj) 2 mg IV.PUSH Q1H PRN PRN Reason: for CIWA 15-20 Lorazepam (Ativan Inj) 2 mg IV.PUSH Q15M PRN PRN Reason: for CIWA > 20 Lorazepam (Ativan Inj) 1 mg IV.PUSH Q4H PRN PRN Reason: for CIWA 8-10 Lorazepam (Ativan) 2 mg PO Q2H PRN PRN Reason: for CIWA 11-14 Morphine Sulfate (Morphine Inj) 2 mg IV.PUSH Q4H PRN PRN Reason: PAIN SCALE 6 TO 10 Last Admin: 07/09/18 08:35 Dose: 2 mg Ondansetron HCl (Zofran Inj) 4 mg IV.PUSH Q6H PRN PRN Reason: NAUSEA OR VOMITING Pravastatin Sodium (Pravachol) 40 mg PO [facility] Senna/Docusate Sodium (Lizette-Colace) 1 tab PO BID [facility] Last Admin: 07/09/18 08:11 Dose: 1 tab Sennosides (Senokot) 17.2 mg PO Q12H PRN PRN Reason: Moderate Constipation Sodium Chloride (Ns Flush) 2 ml IV.FLUSH PRN PRN PRN Reason: FLUSH AFTER USING IV ACCESS Sodium Chloride (Ns Flush) 2 ml IV.FLUSH PRN PRN PRN Reason: FLUSH AFTER USING IV ACCESS Sodium Chloride (Ns Flush) 2 ml IV.FLUSH BID [facility] Last Admin: 07/09/18 08:11 Dose: Not Given Sodium Chloride (Ns Flush) 2 ml IV.FLUSH PRN PRN PRN Reason: FLUSH AFTER USING IV ACCESS Allergies Allergy/AdvReac Type Severity Reaction Status Date / Time codeine Allergy Severe RASH Verified 07/08/18 16:58 Home Medications Medication Instructions Recorded Confirmed Type No Known Home Medications 07/08/18 07/08/18 History Exam Vital signs: Vital Signs 07/08/18 14:24 07/08/18 16:26 07/08/18 16:46 Temperature 98.0 F Pulse Rate 100 H 81 75 Respiratory Rate 19 18 Blood Pressure 243/119 H 199/97 H Pulse Oximetry 98 100 100 07/08/18 17:00 07/08/18 17:15 07/08/18 17:29 Temperature Pulse Rate 75 98 H 105 H Respiratory Rate 18 18 20 Blood Pressure 211/113 H 225/88 H 188/94 H Pulse Oximetry 100 98 98 07/08/18 18:00 07/08/18 19:30 07/08/18 22:13 Temperature Pulse Rate 98 H 81 76 Respiratory Rate 18 20 20 Blood Pressure 201/97 H 156/71 H 206/96 H Pulse Oximetry 99 98 07/08/18 23:14 07/09/18 00:05 07/09/18 00:34 Temperature Pulse Rate 84 77 78 Respiratory Rate 18 20 Blood Pressure 213/90 H 187/86 H Pulse Oximetry 07/09/18 00:39 07/09/18 01:14 07/09/18 03:11 Temperature 97.3 F L 98.0 F Pulse Rate 79 90 Respiratory Rate 17 18 Blood Pressure 201/113 H 209/90 H 194/100 H Pulse Oximetry 97 94 L 07/09/18 03:48 07/09/18 07:50 Temperature 97.4 F L Pulse Rate 79 84 Respiratory Rate 18 Blood Pressure 159/99 H Pulse Oximetry 100 Intake & Output 07/08/18 07/09/18 07/09/18 18:59 06:59 18:59 Intake Total 360 / 360 Balance 360 / 360 Weight 79.379 kg 79.3 kg Intake: Oral 360 / 360 Other: # Voids 3 1 Date of Last Bowel Movement 07/08/18 07/08/18 # Bowel Movements 0 Weight On Admission 79.379 kg Narrative: GENERAL: in NAD, SKIN: Warm and dry. HEAD: Atraumatic. Normocephalic. EYES: Pupils equal and round. No scleral icterus. ENT: No nasal bleeding or discharge. Mucous membranes pink and moist. NECK: Trachea midline. No JVD. CARDIOVASCULAR: Regular rate and rhythm. RESPIRATORY: No accessory muscle use. GASTROINTESTINAL: Abdomen soft, non-tender, nondistended. MUSCULOSKELETAL: Extremities without clubbing, cyanosis, or edema. NEUROLOGICAL: Awake and alert. No aphasia, oriented x3 fluent articulate, No facial asymmetry, OU 3-2mm, eomi, VFF, No drift, mild dystaxia left upper extremity slightly slower amplitude frequency left fine finger movements compared to the right tone normal in all 4 limbs, Sensory normal in all 4 extremities to pin, msr 1-2+ sym, no clonus, planterflexor, PSYCHIATRIC: Appropriate mood and affect; insight and judgment normal. - Constitutional no acute distress - Routine HEENT Exam Head: Present: normocephalic Eye: Present: EOMI Results - Labs CBC & Chem 7: 07/09/18 05:35 07/09/18 05:35 Labs: Laboratory Results - last 24 hr 07/08/18 07/08/18 07/09/18 17:00 17:00 05:35 WBC 7.9 6.1 RBC 4.60 4.54 Hgb 15.3 14.9 Hct 44.2 43.6 MCV 96.1 96.1 MCH 33.3 32.9 MCHC 34.7 34.2 RDW 12.5 12.4 Plt Count 237 231 MPV 9.0 9.1 Neut % (Auto) 75.6 H 94.9 H Lymph % (Auto) 15.5 4.3 L Livingston % (Auto) 7.8 0.7 Eos % (Auto) 0.6 0.0 Baso % (Auto) 0.5 0.1 Neut # (Auto) 6.0 5.8 Lymph # (Auto) 1.2 0.3 L Livingston # (Auto) 0.6 0.0 Eos # (Auto) 0.0 0.0 Baso # (Auto) 0.0 0.0 WBC Differential . . Differential Comment Auto diff final Auto diff final Sodium 138 Potassium 3.8 Chloride 106 Carbon Dioxide 22.6 Anion Gap 9 BUN 13 Creatinine 1.26 H Estimated GFR 42 L POC Glucose Random Glucose 101 Calcium 9.0 Total Bilirubin 0.6 AST 16 ALT 24 Alkaline Phosphatase 78 Total Creatine Kinase 81 Troponin I Less than 0.02 L Total Protein 7.8 Albumin 4.0 Triglycerides Cholesterol LDL Cholesterol, Calc HDL Cholesterol Cholesterol/HDL Ratio 07/09/18 07/09/18 05:35 08:09 WBC RBC Hgb Hct MCV MCH MCHC RDW Plt Count MPV Neut % (Auto) Lymph % (Auto) Livingston % (Auto) Eos % (Auto) Baso % (Auto) Neut # (Auto) Lymph # (Auto) Livingston # (Auto) Eos # (Auto) Baso # (Auto) WBC Differential Differential Comment Sodium 140 Potassium 3.7 Chloride 108 H Carbon Dioxide 24.4 Anion Gap 8 BUN 12 Creatinine 0.96 Estimated GFR 58 L POC Glucose 143 H Random Glucose 155 H Calcium 9.0 Total Bilirubin 0.5 AST 15 ALT 21 Alkaline Phosphatase 69 Total Creatine Kinase Troponin I Total Protein 7.2 D Albumin 3.7 Triglycerides 99 Cholesterol 288 H LDL Cholesterol, Calc 183 H HDL Cholesterol 85.0 H Cholesterol/HDL Ratio 3.38 - Imaging Impressions Chest X-Ray 07/08/18 16:46 CONCLUSION: No acute cardiopulmonary disease. Head CT 07/08/18 16:46 CONCLUSION: Low density at the lateral right parietal lobe most closely resembling an area of subacute infarction. An underlying mass cannot be excluded. This area could be better characterized with a MRI examination with contrast. . . Head MRI 07/08/18 19:15 CONCLUSION: Acute infarction involving the posterior right middle cerebral artery territory. Abdomen X-Ray 07/08/18 19:24 CONCLUSION: Negative KUB. No metallic densities are seen. Review/Management - Diagnosis (1) Acute right arterial ischemic stroke, MCA (middle cerebral artery) Code(s): I63.511 - Cerebral infarction due to unspecified occlusion or stenosis of right middle cerebral artery Status: Acute Current Visit: Yes (2) CVA (cerebral vascular accident) Code(s): I63.9 - Cerebral infarction, unspecified Status: Acute Current Visit: Yes (3) Hypertensive emergency Code(s): I16.1 - Hypertensive emergency Status: Acute Current Visit: Yes (4) Renal insufficiency Code(s): N28.9 - Disorder of kidney and ureter, unspecified Status: Acute Current Visit: Yes - Review/Management Plan: Mild to moderate size right posterior MCA ischemic infarct. Possibly a couple of very tiny left caudal cerebellar infarcts. Risk factor noncompliance to medical treatment chronic uncontrolled hypertension Recommendation Aspirin Statin Cerebrovascular imaging Therapy Compliance with medical treatment. Patient states she is now willing to take prescription medications Behavioral modification and risk factor reduction. Weight loss, blood pressure control, blood sugar control, lipid control. Exercise
--- NOTE | 2018-07-09 11:22 | ECHRPT ---
Indication: cva/tia CONCLUSIONS Normal left ventricular size. Wall thickness is normal. The left ventricular systolic function is normal with an estimated ejection fraction in the range of 60-65%. No regional wall motion abnormalities are present. Trace mitral valve regurgitation. There is trace tricuspid valve regurgitation. The estimated pulmonary arterial pressure is 21 mmHg. BP: / HR: Rhythm: MEASUREMENTS (Male / Female) Normal Values Technical Quality: 2D ECHO LV Diastolic Diameter PLAX 4.4 cm 4.2 - 5.9 / 3.9 - 5.3 cm LV Systolic Diameter PLAX 2.9 cm IVS Diastolic Thickness 1.4 cm 0.6 - 1.0 / 0.6 - 0.9 cm LVPW Diastolic Thickness 0.8 cm 0.6 - 1.0 / 0.6 - 0.9 cm LV Relative Wall Thickness 0.5 RV Internal Dim ED PLAX 2.3 cm LA Systolic Diameter LX 4.2 cm 3.0 - 4.0 / 2.7 - 3.8 cm DOPPLER Mitral E Point Velocity 80.8 cm/s Mitral A Point Velocity 88.8 cm/s Mitral E to A Ratio 0.9 TR Peak Velocity 166.0 cm/s TR Peak Gradient 11.0 mmHg Right Atrial Pressure 10.0 mmHg Pulmonary Artery Systolic Pressu 21.0 mmHg Right Ventricular Systolic Press 21.0 mmHg FINDINGS LEFT VENTRICLE Normal left ventricular size. Wall thickness is normal. The left ventricular systolic function is normal with an estimated ejection fraction in the range of 60-65%. No regional wall motion abnormalities are present. RIGHT VENTRICLE Normal right ventricular size and systolic function. LEFT ATRIUM The left atrial size is normal. RIGHT ATRIUM The right atrial size is normal. ATRIAL SEPTUM Normal atrial septal thickness without atrial level shunting by limited color doppler interrogation. AORTA The aortic root and proximal ascending aorta are normal in size on limited imaging. MITRAL VALVE Trace mitral valve regurgitation. AORTIC VALVE Trileaflet aortic valve. No aortic valve stenosis or regurgitation. The aortic valve is not well vi sualized. TRICUSPID VALVE There is trace tricuspid valve regurgitation. The estimated pulmonary arterial pressure is 21 mmHg. PULMONARY VALVE No pulmonary valve regurgitation or stenosis. VESSELS The inferior vena cava is normal in size. PERICARDIUM No pericardial effusion. Raul Contreras MD (Electronically Signed) Final Date:09 July 2018 11:22
--- NOTE | 2018-07-09 11:34 | MR ---
EXAM DATE: 07/09/2018 11:25 AM EST AGE/SEX: 67 years / Female INDICATIONS: Dizziness. CLINICAL DATA: This is the patient's initial encounter. Patient reports that signs and symptoms have been present for 1 day and indicates a pain score of 0/10. MEDICAL/SURGICAL HISTORY: Hypertension. . ORIF lef kne. [place] [facility] [place]. . TECHNIQUE: 3D [id number] MRA was performed. Source images, multiplanar STS MIP, and 3D volum e MIP reconstructions were reviewed. FINDINGS: Anterior communicating artery. Hypoplastic right A1 segment. There is some nonfilling of portions of the distal right middle cerebral artery and right proximal posterior cerebral artery. There is intral uminal irregularities of both posterior cerebral arteries. Vertebrobasilar junction normal. Basilar a rtery is unremarkable. Left-sided posterior communicating artery. CONCLUSION: 1. There is nonfilling and irregularity of the distal right middle cerebral artery and right proxima l posterior cerebral artery. Electronically signed by: Mirza Deutsch MD Board Certified Radiologist 07/09/2018 11:33 AM EST
[2018-07-09 12:26] LABS: Hemoglobin A1c 5.1 % (4.3-6.0)
[2018-07-09] MEDS: Aspirin 325 MG Tablet PO SCH (12:28)
--- NOTE | 2018-07-09 16:58 | P.PNIM ---
Physical Exam Vital signs: Vital Signs 07/08/18 17:00 07/08/18 17:15 07/08/18 17:29 Temperature Pulse Rate 75 98 H 105 H Respiratory Rate 18 18 20 Blood Pressure 211/113 H 225/88 H 188/94 H Pulse Oximetry 100 98 98 07/08/18 18:00 07/08/18 19:30 07/08/18 22:13 Temperature Pulse Rate 98 H 81 76 Respiratory Rate 18 20 20 Blood Pressure 201/97 H 156/71 H 206/96 H Pulse Oximetry 99 98 07/08/18 23:14 07/09/18 00:05 07/09/18 00:34 Temperature Pulse Rate 84 77 78 Respiratory Rate 18 20 Blood Pressure 213/90 H 187/86 H Pulse Oximetry 07/09/18 00:39 07/09/18 01:14 07/09/18 03:11 Temperature 97.3 F L 98.0 F Pulse Rate 79 90 Respiratory Rate 17 18 Blood Pressure 201/113 H 209/90 H 194/100 H Pulse Oximetry 97 94 L 07/09/18 03:48 07/09/18 07:50 07/09/18 07:55 Temperature 97.4 F L Pulse Rate 79 84 94 H Respiratory Rate 18 Blood Pressure 159/99 H Pulse Oximetry 100 07/09/18 13:19 07/09/18 16:00 Temperature 98.1 F 97.7 F Pulse Rate 74 70 Respiratory Rate 18 20 Blood Pressure 202/85 H Pulse Oximetry 93 L 98 Intake & Output 07/08/18 07/09/18 07/09/18 18:59 06:59 18:59 Intake Total 360 / 360 1000 / 1000 Balance 360 / 360 1000 / 1000 Weight 79.379 kg 79.3 kg Intake: IV 1000 / 1000 NS Inj 1,000 ML @ 70 mls/hr IV. 1000 / 1000 CONT .[id number] [facility] Rx#:[id number] Oral 360 / 360 Other: # Voids 3 4 Date of Last Bowel Movement 07/08/18 07/08/18 # Bowel Movements 0 Weight On Admission 79.379 kg Narrative: GENERAL: Well-nourished, well-developed adult [male] in no obvious distress. SKIN: Warm and dry. HEAD: Atraumatic. Normocephalic. CARDIOVASCULAR: Regular rate and rhythm. RESPIRATORY: No accessory muscle use. Clear to auscultation. Breath sounds equal bilaterally. GASTROINTESTINAL: Abdomen soft, non-tender, distended. Positive bowel sounds. MUSCULOSKELETAL: Extremities without clubbing, cyanosis, or edema. No obvious deformities. NEUROLOGICAL: Awake and alert. No obvious cranial nerve deficits. No facial symmetry. Normal speech. Left upper extremity neglect. Gait not evaluated PSYCHIATRIC: Appropriate mood and affect; insight and judgment good. Results Labs CBC & Chem 7: 07/09/18 05:35 07/09/18 05:35 Imaging Imaging: Impressions Chest X-Ray 07/08/18 16:46 CONCLUSION: No acute cardiopulmonary disease. Head CT 07/08/18 16:46 CONCLUSION: Low density at the lateral right parietal lobe most closely resembling an area of subacute infarction. An underlying mass cannot be excluded. This area could be better characterized with a MRI examination with contrast. . . Head MRI 07/08/18 19:15 CONCLUSION: Acute infarction involving the posterior right middle cerebral artery territory. Abdomen X-Ray 07/08/18 19:24 CONCLUSION: Negative KUB. No metallic densities are seen. Head MRA 07/09/18 10:12 CONCLUSION: 1. There is nonfilling and irregularity of the distal right middle cerebral artery and right proximal posterior cerebral artery. Assessment and Plan (1) Acute right arterial ischemic stroke, MCA (middle cerebral artery): Code(s): I63.511 - Cerebral infarction due to unspecified occlusion or stenosis of right middle cerebral artery Status: Acute (2) CVA (cerebral vascular accident): Code(s): I63.9 - Cerebral infarction, unspecified Status: Acute (3) Hypertensive emergency: Code(s): I16.1 - Hypertensive emergency Status: Acute (4) Renal insufficiency: Code(s): N28.9 - Disorder of kidney and ureter, unspecified Status: Acute Plan Patient is a 67-year-old female with a past medical history of hypertension and hyperlipidemia who presented with the ER with complaint of severe headache. Blood pressure was 243/119 on arrival. Patient also endorsed left handed weakness. She has not seen primary care in over 10 years and does not currently take any medications. CVA; right MCA infarct with left hand weakness -Neurology consulted; appreciate assistance -Permissive hypertension; neurochecks; fall precaution -ASA, statin -PT/OT ordered -Echo not concerned -Carotids pending -Labs grossly normal except for lipids Hypertensive emergency -Improved after hydralazine and Lopressor in ER -No scheduled antihypertensive at this time -PRN antihypertensives for systolic BP >220 Intractable headache -Improved with BP control -Pain control as needed EtOH abuse -endorses 6-8 beers daily -CIWA protocol -Cessation counseled; patient very motivated to quit Acute kidney injury; Cr 1.33 at admit -Resolved with IV fluid -Monitor DVT prophylaxis: SCD teds Discharge planning: PT recommending rehab. Patient currently lives in apartments at [facility]; appreciate case management assistance in placement Progress Note: Quality VTE Deep Vein Thrombosis/Pulmonary Embolism Present on Admission: No _ (1) CVA (cerebral vascular accident) Qualifiers: CVA mechanism: Precerebral and cerebral artery: Laterality of affected vessel:
--- NOTE | 2018-07-09 23:12 | US ---
EXAM DATE: 07/09/2018 11:08 PM EST AGE/SEX: 67 years / Female INDICATIONS: Stroke. CLINICAL DATA: This is the patient's initial encounter. Patient reports that signs and symptoms have been present for 1 day and indicates a pain score of 3/10. MEDICAL/SURGICAL HISTORY: Hypertension. Tears of meniscus and ACL of left knee. None. COMPARISON: No prior exams available for comparison. VELOCITY PARAMETERS: ICA/CCA Ratio: Right 1.3 , Left 1.4 ICA: Right 116 cm/sec, Left 110 cm/sec CCA: Right 90 cm/sec, Left 77 cm/sec ECA: Right 92 cm/sec, Left 128 cm/sec Vertebral: Right 75 cm/sec antegrade, Left 60 cm/sec antegrade FINDINGS: Right Carotid: No significant plaque is visualized.The waveforms are within normal limits. Left Carotid: Mild arteriosclerotic plaque is visualized. The waveforms are within normal limits. Other: None. CONCLUSION: No evidence of flow-limiting carotid stenosis. Electronically signed by: Ron Rodriguez MD Board Certified Radiologist 07/09/2018 11:11 PM EST
[2018-07-10] MEDS: Morphine Sulfate Inj 2 MG/ML Vial IV.PUSH PRN ×3 (05:20→20:08)
[2018-07-10] MEDS: Insulin NovoLOG Aspart Correctional Sugar Inj SQ SCH ×4 (08:31→20:10)
[2018-07-10] MEDS: Senna/Docusate Sodium 8.6/50 MG Tablet PO SCH ×2 (10:07→20:08)
[2018-07-10] MEDS: Aspirin 325 MG Tablet PO SCH (10:07)
--- NOTE | 2018-07-10 10:22 | P.PNNEU ---
Subjective Subjective Comments: No cp, no dyspnea, no mahoney, no focal weakness, no vision loss Active Medications: Active Medications Acetaminophen (Tylenol) 650 mg PO Q4H PRN PRN Reason: Temp > 100.4 Al Hydroxide/Mg Hydroxide (Milk Of Magnesia Liq) 30 ml PO Q12H PRN PRN Reason: Mild Constipation Aspirin (Aspirin) 325 mg PO DAILY [facility] Last Admin: 07/10/18 10:07 Dose: 325 mg Bisacodyl (Dulcolax Supp) 10 mg RECTAL DAILY PRN PRN Reason: SEVERE CONSITIPATION Dextrose (D50w Vial) 50 ml IV.PUSH UNSCH PRN PRN Reason: PER HYPOGLYCEMIA PROTOCOL Enalaprilat (Vasotec Inj) 1.25 mg IV.PUSH Q4H PRN PRN Reason: For SBP > 220 or DBP > 120 Flumazenil (Romazicon Inj) 0.2 mg IV.PUSH Q1M PRN PRN Reason: OVERSEDATION Glucagon (Glucagon Inj) 1 mg OTHER UNSCH PRN PRN Reason: for Hypoglycemia Protocol Insulin Aspart (Novolog Insulin Correctional Sugar Inj) 0 unit SQ [facility]; Protocol Last Admin: 07/10/18 08:31 Dose: Not Given Lactulose (Lactulose Liq) 30 ml PO DAILY PRN PRN Reason: SEVERE CONSITIPATION Lorazepam (Ativan) 1 mg PO Q4H PRN PRN Reason: for CIWA 8-10 Lorazepam (Ativan Inj) 2 mg IV.PUSH Q2H PRN PRN Reason: for CIWA 11-14 Lorazepam (Ativan Inj) 2 mg IV.PUSH Q1H PRN PRN Reason: for CIWA 15-20 Lorazepam (Ativan Inj) 2 mg IV.PUSH Q15M PRN PRN Reason: for CIWA > 20 Lorazepam (Ativan Inj) 1 mg IV.PUSH Q4H PRN PRN Reason: for CIWA 8-10 Lorazepam (Ativan) 2 mg PO Q2H PRN PRN Reason: for CIWA 11-14 Morphine Sulfate (Morphine Inj) 2 mg IV.PUSH Q4H PRN PRN Reason: PAIN SCALE 6 TO 10 Last Admin: 07/10/18 10:07 Dose: 2 mg Ondansetron HCl (Zofran Inj) 4 mg IV.PUSH Q6H PRN PRN Reason: NAUSEA OR VOMITING Pravastatin Sodium (Pravachol) 40 mg PO HS [facility] Last Admin: 07/09/18 21:43 Dose: 40 mg Senna/Docusate Sodium (Lizette-Colace) 1 tab PO BID [facility] Last Admin: 07/10/18 10:07 Dose: 1 tab Sennosides (Senokot) 17.2 mg PO Q12H PRN PRN Reason: Moderate Constipation Sodium Chloride (Ns Flush) 2 ml IV.FLUSH PRN PRN PRN Reason: FLUSH AFTER USING IV ACCESS Sodium Chloride (Ns Flush) 2 ml IV.FLUSH PRN PRN PRN Reason: FLUSH AFTER USING IV ACCESS Sodium Chloride (Ns Flush) 2 ml IV.FLUSH BID [facility] Last Admin: 07/10/18 10:07 Dose: 2 ml Sodium Chloride (Ns Flush) 2 ml IV.FLUSH PRN PRN PRN Reason: FLUSH AFTER USING IV ACCESS Allergies/Adverse Reactions: Allergies Allergy/AdvReac Type Severity Reaction Status Date / Time codeine Allergy Severe RASH Verified 07/08/18 16:58 Review of Systems All other systems reviewed negative except as stated in HPI Physical Exam Vital signs: Vital Signs 07/09/18 13:19 07/09/18 16:00 07/09/18 16:05 Temperature 98.1 F 97.7 F Pulse Rate 74 70 63 Respiratory Rate 18 20 Blood Pressure 202/85 H Pulse Oximetry 93 L 98 07/09/18 19:30 07/09/18 19:42 07/09/18 20:10 Temperature 97.1 F L 97.1 F L Pulse Rate 78 81 82 Respiratory Rate 18 18 Blood Pressure 200/92 H 200/92 H Pulse Oximetry 96 98 07/09/18 23:30 07/09/18 23:56 07/10/18 00:00 Temperature 97.2 F L 97.2 F L Pulse Rate 73 58 L 66 Respiratory Rate 18 17 Blood Pressure 167/94 H 167/94 H Pulse Oximetry 95 98 07/10/18 04:07 07/10/18 04:30 Temperature 97.7 F Pulse Rate 51 L 66 Respiratory Rate 18 Blood Pressure 180/79 H Pulse Oximetry 97 Intake & Output 07/09/18 07/10/18 07/10/18 18:59 06:59 18:59 Intake Total 2720 / 2720 Balance 2720 / 2720 Intake: IV 1999 NS Inj 1,000 ML @ 70 mls/hr IV. 1999 CONT .[id number] [facility] Rx#:[id number] Oral 720 / 720 Other: # Voids 7 Date of Last Bowel Movement 07/08/18 07/08/18 Narrative: GENERAL: in NAD, SKIN: Warm and dry. HEAD: Atraumatic. Normocephalic. EYES: Pupils equal and round. No scleral icterus. ENT: No nasal bleeding or discharge. NECK: Trachea midline. No JVD. CARDIOVASCULAR: Regular rate and rhythm. RESPIRATORY: No accessory muscle use. GASTROINTESTINAL: Abdomen soft, non-tender, nondistended. MUSCULOSKELETAL: Extremities without clubbing, cyanosis, or edema. NEUROLOGICAL: Awake and alert. No aphasia, oriented x3 fluent articulate, No facial asymmetry, OU 3-2mm, eomi, VFF, left homonymous hemianopsia, no drift, mild dystaxia left upper extremity slightly slower amplitude frequency left fine finger movements compared to the right tone normal in all 4 limbs, minimal left-sided neglect however no anosognosia, gait not assessed secondary fall risk PSYCHIATRIC: Appropriate mood and affect; insight and judgment normal. - Constitutional no acute distress - Routine HEENT Exam Head: Present: normocephalic Eye: Present: EOMI Objective Laboratory Results - last 24 hr 07/09/18 07/09/18 07/09/18 05:35 11:58 17:13 POC Glucose 121 H 110 Hemoglobin A1c 5.1 07/09/18 07/10/18 21:33 08:21 POC Glucose 114 H 88 Hemoglobin A1c Review/Management - Diagnosis (1) Acute right arterial ischemic stroke, MCA (middle cerebral artery) Code(s): I63.511 - Cerebral infarction due to unspecified occlusion or stenosis of right middle cerebral artery Status: Acute Current Visit: Yes (2) CVA (cerebral vascular accident) Code(s): I63.9 - Cerebral infarction, unspecified Status: Acute Current Visit: Yes (3) Hypertensive emergency Code(s): I16.1 - Hypertensive emergency Status: Acute Current Visit: Yes (4) Renal insufficiency Code(s): N28.9 - Disorder of kidney and ureter, unspecified Status: Acute Current Visit: Yes - Review/Management Plan: Mild to moderate size right posterior MCA ischemic infarct. Possibly a couple of very tiny left caudal cerebellar infarcts. Risk factor noncompliance to medical treatment chronic uncontrolled hypertension Aspirin Statin Echo, EF greater than 60%. Carotids no significant vaso-occlusive disease. MRA brain showing distal right MCA probable occlusion Recommendation Neuro stable May benefit from inpatient rehabilitation particular in light of the left homonymous hemianopsia Compliance with medical treatment. Patient states she is now willing to take prescription medications No driving with left homonymous hemianopsia. This will have to be serially evaluated through formal visual field testing by ophthalmology in the outpatient setting Behavioral modification and risk factor reduction. Weight loss, blood pressure control, blood sugar control, lipid control. Exercise
--- NOTE | 2018-07-10 15:40 | P.PNIM ---
Physical Exam Vital signs: Vital Signs 07/09/18 16:00 07/09/18 16:05 07/09/18 19:30 Temperature 97.7 F 97.1 F L Pulse Rate 70 63 78 Respiratory Rate 20 18 Blood Pressure 202/85 H 200/92 H Pulse Oximetry 98 96 07/09/18 19:42 07/09/18 20:10 07/09/18 23:30 Temperature 97.1 F L 97.2 F L Pulse Rate 81 82 73 Respiratory Rate 18 18 Blood Pressure 200/92 H 167/94 H Pulse Oximetry 98 95 07/09/18 23:56 07/10/18 00:00 07/10/18 04:07 Temperature 97.2 F L Pulse Rate 58 L 66 51 L Respiratory Rate 17 Blood Pressure 167/94 H Pulse Oximetry 98 07/10/18 04:30 07/10/18 08:00 07/10/18 12:00 Temperature 97.7 F 97.8 F 97.5 F L Pulse Rate 66 72 71 Respiratory Rate 18 20 22 Blood Pressure 180/79 H 212/90 H 197/91 H Pulse Oximetry 97 97 99 Intake & Output 07/09/18 07/10/18 07/10/18 18:59 06:59 18:59 Intake Total 2720 / 2720 Balance 2720 / 2720 Intake: IV 1999 NS Inj 1,000 ML @ 70 mls/hr IV. 1999 CONT .[id number] [facility] Rx#:[id number] Oral 720 / 720 Other: # Voids 7 Date of Last Bowel Movement 07/08/18 07/08/18 07/08/18 Narrative: GENERAL: Well-nourished, well-developed adult female in no obvious distress. SKIN: Warm and dry. HEAD: Atraumatic. Normocephalic. CARDIOVASCULAR: Regular rate and rhythm. RESPIRATORY: No accessory muscle use. Clear to auscultation. Breath sounds equal bilaterally. GASTROINTESTINAL: Abdomen soft, non-tender, distended. Positive bowel sounds. MUSCULOSKELETAL: Extremities without clubbing, cyanosis, or edema. No obvious deformities. NEUROLOGICAL: Awake and alert. No obvious cranial nerve deficits. No facial symmetry. Normal speech. Left upper extremity neglect. Gait not evaluated Results Labs CBC & Chem 7: 07/09/18 05:35 07/09/18 05:35 Imaging Imaging: Impressions Carotid Doppler Study 07/09/18 10:12 CONCLUSION: No evidence of flow-limiting carotid stenosis. Assessment and Plan (1) Acute right arterial ischemic stroke, MCA (middle cerebral artery): Code(s): I63.511 - Cerebral infarction due to unspecified occlusion or stenosis of right middle cerebral artery Status: Acute (2) CVA (cerebral vascular accident): Code(s): I63.9 - Cerebral infarction, unspecified Status: Acute (3) Hypertensive emergency: Code(s): I16.1 - Hypertensive emergency Status: Acute (4) Renal insufficiency: Code(s): N28.9 - Disorder of kidney and ureter, unspecified Status: Acute Plan Patient is a 67-year-old female with a past medical history of hypertension and hyperlipidemia who presented with the ER with complaint of severe headache. Blood pressure was 243/119 on arrival. Patient also endorsed left handed weakness. She has not seen primary care in over 10 years and does not currently take any medications. CVA; right MCA infarct with left hand weakness -Neurology consulted; appreciate assistance -Permissive hypertension; neurochecks; fall precaution -ASA, statin -PT/OT ordered -Echo not concerned -Carotids not concerning -Labs grossly normal except for lipids -Will need outpatient follow-up with ophthalmology per neurology Hypertensive emergency -Improved after hydralazine and Lopressor in ER -No scheduled antihypertensive at this time -PRN antihypertensives for systolic BP >220 Intractable headache -Improved with BP control -Pain control as needed EtOH abuse -endorses 6-8 beers daily -CIWA protocol -Cessation counseled; patient very motivated to quit Acute kidney injury; Cr 1.33 at admit -Resolved with IV fluid -Monitor DVT prophylaxis: SCD teds Discharge planning: PT recommending rehab; patient refusing but will accept home health. Patient currently lives in apartments at [facility]; appreciate case management assistance Progress Note: Quality VTE Deep Vein Thrombosis/Pulmonary Embolism Present on Admission: No _ (1) CVA (cerebral vascular accident) Qualifiers: CVA mechanism: Precerebral and cerebral artery: Laterality of affected vessel:
[2018-07-11] MEDS: Morphine Sulfate Inj 2 MG/ML Vial IV.PUSH PRN ×2 (00:01→05:12)
[2018-07-11] MEDS: Sod Chloride 0.9% Inj 1,000 ML IV.SIG SCH ×2 (02:15→16:32)
--- NOTE | 2018-07-11 02:32 | CT ---
EXAM DATE: 07/11/2018 2:22 AM EST AGE/SEX: 67 years / Female INDICATIONS: Neuro status change. CLINICAL DATA: This is the patient's subsequent encounter. Patient reports that signs and symptoms h ave been present for 2 days and indicates a pain score of 0/10. MEDICAL/SURGICAL HISTORY: Hypertension. Total knee replacement, left. RADIATION DOSE: 56.35 CTDI (mGy) COMPARISON: [facility] [place], MR HEAD W & W/O CONTRAST, 07/08/2018. . TECHNIQUE: CT of the head without contrast. Using automated exposure control and adjustment of the mA and/or kV according to patient size, radiation dose was kept as low as reasonably achievable to ob tain optimal diagnostic quality images. DICOM format image data is available electronically for revi ew and comparison. FINDINGS: Cerebrum: Prominent area of encephalomalacia in the posterior right parietal distribution characteri stic of the recent infarct. Focal area of encephalomalacia in the right basal ganglia. Old lacunar ty pe infarct in the left ramsay radiata. 6 mm right to left subfalcine shift. No superimposed acute int racranial process. No extraaxial fluid collections are seen. Posterior Fossa: The cerebellum and brainstem are intact. The 4th ventricle is midline. The cerebe llopontine angle is unremarkable. Extracranial: The visualized portion of the orbits is intact. Skull: The calvaria is intact. No evidence of skull fracture. CONCLUSION: 1. Expected evolution of the right posterior MCA and right basal ganglia infarcts. 2. 6 mm right to left subfalcine shift secondary to be associated edema in the right cerebral hemisp here. 3. No superimposed acute intracranial process. Report was called by Dr. Torres to Dr. Connell at 0228 hours. Electronically signed by: Ariel Torres MD Board Certified Radiologist 07/11/2018 2:31 AM EST
[2018-07-11 02:46] LABS: Activated Partial Thrombo Time 25.4 sec (23.4-31.7); INR 0.9 Ratio; Prothrombin Time 9.6 sec (9.8-11.6)
[2018-07-11 02:52] LABS: Baso % (Auto) 0.4 % (0.0-2.0); Eos # (Auto) 0.1 th/mm3 (0.0-0.4); Eos % (Auto) 1.3 % (0.0-4.0); Hematocrit 42.7 % (35.0-46.0); Hemoglobin 14.9 gm/dL (11.6-15.3); Lymph % (Auto) 14.4 % (9.0-44.0); Mean Corpuscular HGB Conc 34.8 % (32.0-36.0); Mean Corpuscular Volume 94.9 fL (80.0-100.0); Mono # (Auto) 0.6 th/mm3 (0.0-0.9); Neut # (Auto) 5.4 th/mm3 (1.8-7.7); Neut % (Auto) 75.9 % (16.0-70.0); Platelet Count 225 th/mm3 (150-450); Red Cell Distribution Width 12.5 % (11.6-17.2); White Blood Count 7.1 th/mm3 (4.0-11.0)
[2018-07-11 03:00] LABS: Creatine Kinase 71 U/L (26-192)
[2018-07-11] MEDS: Insulin NovoLOG Aspart Correctional Sugar Inj SQ SCH ×4 (08:36→22:13)
[2018-07-11] MEDS: Senna/Docusate Sodium 8.6/50 MG Tablet PO SCH ×2 (08:42→20:17)
[2018-07-11] MEDS: Aspirin 325 MG Tablet PO SCH (08:42)
--- NOTE | 2018-07-11 09:09 | P.PNNEU ---
Subjective Subjective Comments: left side weaker last night. mahoney. better this am. recieved mannitol x 1. no cp, no dyspnea. aware of left sided weakness Active Medications: Active Medications Acetaminophen (Tylenol) 650 mg PO Q4H PRN PRN Reason: Temp > 100.4 Al Hydroxide/Mg Hydroxide (Milk Of Magnesia Liq) 30 ml PO Q12H PRN PRN Reason: Mild Constipation Aspirin (Aspirin) 325 mg PO DAILY [facility] Last Admin: 07/11/18 08:42 Dose: 325 mg Bisacodyl (Dulcolax Supp) 10 mg RECTAL DAILY PRN PRN Reason: SEVERE CONSITIPATION Dextrose (D50w Vial) 50 ml IV.PUSH UNSCH PRN PRN Reason: PER HYPOGLYCEMIA PROTOCOL Enalaprilat (Vasotec Inj) 1.25 mg IV.PUSH Q4H PRN PRN Reason: For SBP > 220 or DBP > 120 Last Admin: 07/10/18 20:08 Dose: 1.25 mg Flumazenil (Romazicon Inj) 0.2 mg IV.PUSH Q1M PRN PRN Reason: OVERSEDATION Glucagon (Glucagon Inj) 1 mg OTHER UNSCH PRN PRN Reason: for Hypoglycemia Protocol Sodium Chloride (Ns Inj) 1,000 mls @ 75 mls/hr IV.SIG .[id number] [facility] Last Admin: 07/11/18 02:15 Dose: 75 mls/hr Insulin Aspart (Novolog Insulin Correctional Sugar Inj) 0 unit SQ ACHS [facility]; Protocol Last Admin: 07/11/18 08:36 Dose: Not Given Lactulose (Lactulose Liq) 30 ml PO DAILY PRN PRN Reason: SEVERE CONSITIPATION Last Admin: 07/10/18 20:08 Dose: 30 ml Lorazepam (Ativan) 1 mg PO Q4H PRN PRN Reason: for CIWA 8-10 Lorazepam (Ativan Inj) 2 mg IV.PUSH Q2H PRN PRN Reason: for CIWA 11-14 Lorazepam (Ativan Inj) 2 mg IV.PUSH Q1H PRN PRN Reason: for CIWA 15-20 Lorazepam (Ativan Inj) 2 mg IV.PUSH Q15M PRN PRN Reason: for CIWA > 20 Lorazepam (Ativan Inj) 1 mg IV.PUSH Q4H PRN PRN Reason: for CIWA 8-10 Lorazepam (Ativan) 2 mg PO Q2H PRN PRN Reason: for CIWA 11-14 Morphine Sulfate (Morphine Inj) 2 mg IV.PUSH Q4H PRN PRN Reason: PAIN SCALE 6 TO 10 Last Admin: 07/11/18 05:12 Dose: 2 mg Ondansetron HCl (Zofran Inj) 4 mg IV.PUSH Q6H PRN PRN Reason: NAUSEA OR VOMITING Last Admin: 07/10/18 16:14 Dose: 4 mg Pravastatin Sodium (Pravachol) 40 mg PO HS [facility] Last Admin: 07/10/18 20:08 Dose: 40 mg Senna/Docusate Sodium (Lizette-Colace) 1 tab PO BID [facility] Last Admin: 07/11/18 08:42 Dose: 1 tab Sennosides (Senokot) 17.2 mg PO Q12H PRN PRN Reason: Moderate Constipation Last Admin: 07/11/18 08:42 Dose: 17.2 mg Sodium Chloride (Ns Flush) 2 ml IV.FLUSH BID [facility] Last Admin: 07/11/18 08:42 Dose: Not Given Sodium Chloride (Ns Flush) 2 ml IV.FLUSH PRN PRN PRN Reason: FLUSH AFTER USING IV ACCESS Allergies/Adverse Reactions: Allergies Allergy/AdvReac Type Severity Reaction Status Date / Time codeine Allergy Severe RASH Verified 07/08/18 16:58 Review of Systems All other systems reviewed negative except as stated in HPI Physical Exam Vital signs: Vital Signs 07/10/18 12:00 07/10/18 16:00 07/10/18 20:00 Temperature 97.5 F L 97.7 F Pulse Rate 71 70 74 Respiratory Rate 22 22 Blood Pressure 197/91 H 195/84 H Pulse Oximetry 99 97 07/10/18 20:45 07/10/18 23:50 07/11/18 00:00 Temperature 98.3 F 98.2 F Pulse Rate 78 66 68 Respiratory Rate 20 17 Blood Pressure 231/96 H 144/67 H Pulse Oximetry 97 94 L 07/11/18 02:00 07/11/18 02:01 07/11/18 04:00 Temperature 98.1 F Pulse Rate 74 65 Respiratory Rate 18 Blood Pressure 208/81 H Pulse Oximetry 98 07/11/18 04:28 07/11/18 07:58 Temperature 98.2 F Pulse Rate 72 81 Respiratory Rate 20 Blood Pressure 198/90 H Pulse Oximetry 97 Intake & Output 07/10/18 07/11/18 07/11/18 18:59 06:59 18:59 Intake Total 850 / 850 420 / 420 Balance 850 / 850 420 / 420 Weight 79.2 kg Intake: Oral 850 / 850 420 / 420 Other: # Voids 5 5 Date of Last Bowel Movement 07/08/18 07/08/18 07/08/18 # Bowel Movements 0 0 Narrative: GENERAL: in NAD, SKIN: Warm and dry. HEAD: Atraumatic. Normocephalic. EYES: Pupils equal and round. No scleral icterus. ENT: No nasal bleeding or discharge. NECK: Trachea midline. No JVD. CARDIOVASCULAR: Regular rate and rhythm. RESPIRATORY: No accessory muscle use. GASTROINTESTINAL: Abdomen soft, non-tender, nondistended. MUSCULOSKELETAL: Extremities without clubbing, cyanosis, or edema. NEUROLOGICAL: Awake and alert. No aphasia, oriented x3 fluent articulate, No facial asymmetry, OU 3-2mm, eomi, VFF, left homonymous hemianopsia, left hemiparesis ue 3/5, le 4/5 PSYCHIATRIC: verbose - Constitutional no acute distress - Routine HEENT Exam Head: Present: normocephalic Eye: Present: EOMI Objective Laboratory Results - last 24 hr 07/10/18 07/10/18 07/10/18 12:07 17:19 20:05 WBC RBC Hgb POC Hgb (Calc) Hct POC Hct MCV MCH MCHC RDW Plt Count MPV Neut % (Auto) Lymph % (Auto) Weakley % (Auto) Eos % (Auto) Baso % (Auto) Neut # (Auto) Lymph # (Auto) Weakley # (Auto) Eos # (Auto) Baso # (Auto) WBC Differential Differential Comment PT INR APTT Fibrinogen POC Sodium POC Potassium POC Chloride POC BUN POC Creatinine POC Glucose 110 102 92 Total Creatine Kinase Troponin I Blood Type Blood Type Recheck Antibody Screen 07/11/18 07/11/18 07/11/18 02:02 02:08 02:08 WBC 7.1 RBC 4.50 Hgb 14.9 POC Hgb (Calc) Hct 42.7 POC Hct MCV 94.9 MCH 33.0 MCHC 34.8 RDW 12.5 Plt Count 225 MPV 9.0 Neut % (Auto) 75.9 H Lymph % (Auto) 14.4 Weakley % (Auto) 8.0 Eos % (Auto) 1.3 Baso % (Auto) 0.4 Neut # (Auto) 5.4 Lymph # (Auto) 1.0 Weakley # (Auto) 0.6 Eos # (Auto) 0.1 Baso # (Auto) 0.0 WBC Differential . Differential Comment Auto diff final PT 9.6 L INR 0.9 APTT 25.4 Fibrinogen 309 POC Sodium POC Potassium POC Chloride POC BUN POC Creatinine POC Glucose 115 H Total Creatine Kinase Troponin I Blood Type Blood Type Recheck Antibody Screen 07/11/18 07/11/18 07/11/18 02:08 02:08 07:28 WBC RBC Hgb POC Hgb (Calc) 14.3 Hct POC Hct 42.0 MCV MCH MCHC RDW Plt Count MPV Neut % (Auto) Lymph % (Auto) Weakley % (Auto) Eos % (Auto) Baso % (Auto) Neut # (Auto) Lymph # (Auto) Weakley # (Auto) Eos # (Auto) Baso # (Auto) WBC Differential Differential Comment PT INR APTT Fibrinogen POC Sodium 139 POC Potassium 3.6 POC Chloride 103 POC BUN 11 POC Creatinine 1.0 POC Glucose 111 H 102 Total Creatine Kinase 71 Troponin I Less than 0.02 L Blood Type B Positive Blood Type Recheck Required Antibody Screen Negative Review/Management - Diagnosis (1) Acute right arterial ischemic stroke, MCA (middle cerebral artery) Code(s): I63.511 - Cerebral infarction due to unspecified occlusion or stenosis of right middle cerebral artery Status: Acute Current Visit: Yes (2) CVA (cerebral vascular accident) Code(s): I63.9 - Cerebral infarction, unspecified Status: Acute Current Visit: Yes (3) Hypertensive emergency Code(s): I16.1 - Hypertensive emergency Status: Acute Current Visit: Yes (4) Renal insufficiency Code(s): N28.9 - Disorder of kidney and ureter, unspecified Status: Acute Current Visit: Yes - Review/Management Plan: Mild to moderate size right posterior MCA ischemic infarct. Possibly a couple of very tiny left caudal cerebellar infarcts. Risk factor noncompliance to medical treatment chronic uncontrolled hypertension Aspirin Statin Echo, EF greater than 60%. Carotids no significant vaso-occlusive disease. MRA brain showing distal right MCA probable occlusion 2/18 ct brain reviewed. additional areas of rt sided stroke. ? new left high subcortical infarct Recommendation repeat mri brain ivf add plavix bp 200/100 follow exam resume therapy in am Behavioral modification and risk factor reduction. Weight loss, blood pressure control, blood sugar control, lipid control. Exercise
--- NOTE | 2018-07-11 10:21 | MR ---
EXAM DATE: 07/11/2018 10:09 AM EST AGE/SEX: 67 years / Female INDICATIONS: Left sided weakness. Dizziness. CLINICAL DATA: This is the patient's subsequent encounter. Patient reports that signs and symptoms h ave been present for 3 days and indicates a pain score of 3/10. MEDICAL/SURGICAL HISTORY: Hypertension. . leftr knee [place] [facility] [place] [facility] [place]/O [place]08/2018. . TECHNIQUE: Multiplanar, multisequence examination of the brain was performed without contrast. FINDINGS: Cerebrum: The ventricles are normal for age. No mass lesion, hemorrhage or acute infarction. No ext raaxial fluid collections are seen. The pituitary gland and suprasellar cistern are normal in config uration. White Matter: Scattered mild chronic FLAIR signal abnormality of the bilateral periventricular white matter and basal ganglia again noted and not significantly changed. Posterior Fossa: The cerebellum and brainstem are intact. The 4th ventricle is midline. The cerebel lopontine angle is unremarkable. The cerebellar tonsils are normal in position. Diffusion Imaging: The restricted diffusion related to subacute infarct in the right posterior cereb ral artery distribution is slightly larger, currently approximately 4.0 x 8.4 cm across. The focal re stricted diffusion in the right basal ganglia is not significantly changed. There is approximately 4 mm of leftward midline shift, not significantly changed from the CT but slightly increased from the p rior MRI Extracranial: The visualized portions of the orbits and paranasal sinuses are unremarkable. CONCLUSION: 1. There is an evolving subacute infarct of the right posterior cerebral artery distribution. The as sociated restricted diffusion is slightly larger in the interim. There is approximately 4 mm of leftw genesis midline shift. 2. Mild chronic white matter signal changes are stable. Electronically signed by: Ron Pfeiffer MD Board Certified Radiologist 07/11/2018 10:20 AM EST
[2018-07-11] MEDS ORDERED: Naloxone Inj 0.4 MG/ML Vial IV.PUSH PRN (14:23)
--- NOTE | 2018-07-11 14:44 | P.PNIM ---
Subjective Interval history: Patient seen sitting up in bed just prior to going to MRI. Left hand slightly weaker with increased neglect. No other new neurological symptoms noted. Patient continues to complain of slight right-sided headache. No vision changes. No other new complaints. Physical Exam Vital signs: Vital Signs 07/10/18 16:00 07/10/18 20:00 07/10/18 20:45 Temperature 97.7 F 98.3 F Pulse Rate 70 74 78 Respiratory Rate 22 20 Blood Pressure 195/84 H 231/96 H Pulse Oximetry 97 97 07/10/18 23:50 07/11/18 00:00 07/11/18 02:00 Temperature 98.2 F 98.1 F Pulse Rate 66 68 74 Respiratory Rate 17 18 Blood Pressure 144/67 H 208/81 H Pulse Oximetry 94 L 07/11/18 02:01 07/11/18 04:00 07/11/18 04:28 Temperature 98.2 F Pulse Rate 65 72 Respiratory Rate 20 Blood Pressure 198/90 H Pulse Oximetry 98 97 07/11/18 07:58 07/11/18 08:00 Temperature 97.7 F Pulse Rate 81 79 Respiratory Rate 18 Blood Pressure 217/92 H Pulse Oximetry 95 Intake & Output 07/10/18 07/11/18 07/11/18 18:59 06:59 18:59 Intake Total 850 / 850 420 / 420 Balance 850 / 850 420 / 420 Weight 79.2 kg Intake: Oral 850 / 850 420 / 420 Other: # Voids 5 5 Date of Last Bowel Movement 07/08/18 07/08/18 07/08/18 # Bowel Movements 0 0 Narrative: GENERAL: Well-nourished, well-developed adult female in no obvious distress. SKIN: Warm and dry. HEAD: Atraumatic. Normocephalic. CARDIOVASCULAR: Regular rate and rhythm. RESPIRATORY: No accessory muscle use. Clear to auscultation. Breath sounds equal bilaterally. GASTROINTESTINAL: Abdomen soft, non-tender, distended. Positive bowel sounds. MUSCULOSKELETAL: Extremities without clubbing, cyanosis, or edema. No obvious deformities. NEUROLOGICAL: Awake and alert. No obvious cranial nerve deficits. No facial symmetry. Normal speech. Left upper extremity neglect. Gait not evaluated Results Labs CBC & Chem 7: 07/11/18 02:08 07/09/18 05:35 Imaging Imaging: Impressions Head MRI 07/11/18 00:00 CONCLUSION: 1. There is an evolving subacute infarct of the right posterior cerebral artery distribution. The associated restricted diffusion is slightly larger in the interim. There is approximately 4 mm of leftward midline shift. 2. Mild chronic white matter signal changes are stable. Head CT 07/11/18 02:06 CONCLUSION: 1. Expected evolution of the right posterior MCA and right basal ganglia infarcts. 2. 6 mm right to left subfalcine shift secondary to be associated edema in the right cerebral hemisphere. 3. No superimposed acute intracranial process. Report was called by Dr. Torres to Dr. Connell at 0228 hours. Assessment and Plan (1) Acute right arterial ischemic stroke, MCA (middle cerebral artery): Code(s): I63.511 - Cerebral infarction due to unspecified occlusion or stenosis of right middle cerebral artery Status: Acute (2) CVA (cerebral vascular accident): Code(s): I63.9 - Cerebral infarction, unspecified Status: Acute (3) Hypertensive emergency: Code(s): I16.1 - Hypertensive emergency Status: Acute (4) Renal insufficiency: Code(s): N28.9 - Disorder of kidney and ureter, unspecified Status: Acute Plan Patient is a 67-year-old female with a past medical history of hypertension and hyperlipidemia who presented with the ER with complaint of severe headache. Blood pressure was 243/119 on arrival. Patient also endorsed left handed weakness. She has not seen primary care in over 10 years and does not currently take any medications. CVA; right MCA infarct with left hand weakness -Neurology consulted; appreciate assistance -Permissive hypertension; neurochecks; fall precaution -ASA, statin -PT/OT ordered -Echo - EF +60%; trace regurg -Carotids not concerning -Labs grossly normal except for lipids -Will need outpatient follow-up with ophthalmology per neurology -Increased weakness overnight 07/10 -new MRI ordered. Received mannitol. Plavix added. Hypertensive emergency -Improved after hydralazine and Lopressor in ER -No scheduled antihypertensive at this time -PRN antihypertensives for systolic BP >220 Intractable headache -Improved with BP control -Pain control as needed. Stop morphine due to nursing report of increased confusion with use. tramadol instead EtOH abuse -endorses 6-8 beers daily -[facility] protocol -Cessation counseled; patient very motivated to quit Acute kidney injury; Cr 1.33 at admit -Resolved with IV fluid -Monitor DVT prophylaxis: SCD teds Discharge planning: PT recommending rehab; patient refusing but will accept home health. Patient currently lives in [facility] at [facility]; appreciate case management assistance Progress Note: Quality VTE Deep Vein Thrombosis/Pulmonary Embolism Present on Admission: No _ (1) CVA (cerebral vascular accident) Qualifiers: CVA mechanism: Precerebral and cerebral artery: Laterality of affected vessel:
--- NOTE | 2018-07-11 16:08 | ECG ---
Date Performed: 07/11/2018 Time Performed: 02:55:52 PTAGE: 67 years EKG: Sinus rhythm Extensive ST-T changes are nonspecific Nonspecific QRS axis changes, possibly due to lead placement. Borderline ECG PREVIOUS TRACING : 07/08/2018 14.39 DOCTOR: Mark Grace Interpretating Date/Time 07/11/2018 16:06:51
[2018-07-12] MEDS: Insulin NovoLOG Aspart Correctional Sugar Inj SQ SCH ×4 (08:20→21:22)
[2018-07-12] MEDS: Senna/Docusate Sodium 8.6/50 MG Tablet PO SCH ×2 (08:34→20:38)
[2018-07-12] MEDS: Aspirin 325 MG Tablet PO SCH (08:34)
[2018-07-12] MEDS: Lisinopril 10 MG Tablet PO SCH (10:44)
[2018-07-12] MEDS: Sod Chloride 0.9% Inj 1,000 ML IV.SIG SCH (13:24)
--- NOTE | 2018-07-12 16:20 | P.PNNEU ---
Subjective Subjective Comments: No cp, no dyspnea, no mahoney, no focal weakness, no vision loss; complains of insomnia requesting medication to help sleep at night Active Medications: Active Medications Acetaminophen (Tylenol) 650 mg PO Q4H PRN PRN Reason: Temp > 100.4 Al Hydroxide/Mg Hydroxide (Milk Of Magnesia Liq) 30 ml PO Q12H PRN PRN Reason: Mild Constipation Aspirin (Aspirin) 325 mg PO DAILY [facility] Last Admin: 07/12/18 08:34 Dose: 325 mg Bisacodyl (Dulcolax Supp) 10 mg RECTAL DAILY PRN PRN Reason: SEVERE CONSITIPATION Clonidine HCl (Catapres) 0.1 mg PO Q6H PRN PRN Reason: SEE LABEL COMMENTS Clopidogrel Bisulfate (Plavix) 75 mg PO DAILY [facility] Last Admin: 07/12/18 08:34 Dose: 75 mg Dextrose (D50w Vial) 50 ml IV.PUSH UNSCH PRN PRN Reason: PER HYPOGLYCEMIA PROTOCOL Enalaprilat (Vasotec Inj) 1.25 mg IV.PUSH Q4H PRN PRN Reason: For SBP > 220 or DBP > 120 Last Admin: 07/10/18 20:08 Dose: 1.25 mg Flumazenil (Romazicon Inj) 0.2 mg IV.PUSH Q1M PRN PRN Reason: OVERSEDATION Glucagon (Glucagon Inj) 1 mg OTHER UNSCH PRN PRN Reason: for Hypoglycemia Protocol Insulin Aspart (Novolog Insulin Correctional Sugar Inj) 0 unit SQ ACHS [facility]; Protocol Last Admin: 07/12/18 11:14 Dose: Not Given Lactulose (Lactulose Liq) 30 ml PO DAILY PRN PRN Reason: SEVERE CONSITIPATION Last Admin: 07/11/18 20:17 Dose: 30 ml Lisinopril (Prinivil) 10 mg PO DAILY [facility] Last Admin: 07/12/18 10:44 Dose: 10 mg Lorazepam (Ativan) 1 mg PO Q4H PRN PRN Reason: for CIWA 8-10 Lorazepam (Ativan Inj) 2 mg IV.PUSH Q2H PRN PRN Reason: for CIWA 11-14 Lorazepam (Ativan Inj) 2 mg IV.PUSH Q1H PRN PRN Reason: for CIWA 15-20 Lorazepam (Ativan Inj) 2 mg IV.PUSH Q15M PRN PRN Reason: for CIWA > 20 Lorazepam (Ativan Inj) 1 mg IV.PUSH Q4H PRN PRN Reason: for CIWA 8-10 Lorazepam (Ativan) 2 mg PO Q2H PRN PRN Reason: for CIWA 11-14 Naloxone HCl (Narcan Inj) 0.4 mg IV.PUSH UNSCH PRN PRN Reason: SEE LABEL COMMENTS Ondansetron HCl (Zofran Inj) 4 mg IV.PUSH Q6H PRN PRN Reason: NAUSEA OR VOMITING Last Admin: 07/12/18 14:09 Dose: 4 mg Pravastatin Sodium (Pravachol) 40 mg PO HS [facility] Last Admin: 07/11/18 20:17 Dose: 40 mg Senna/Docusate Sodium (Lizette-Colace) 1 tab PO BID [facility] Last Admin: 07/12/18 08:34 Dose: 1 tab Sennosides (Senokot) 17.2 mg PO Q12H PRN PRN Reason: Moderate Constipation Last Admin: 07/11/18 20:17 Dose: 17.2 mg Sodium Chloride (Ns Flush) 2 ml IV.FLUSH BID [facility] Last Admin: 07/12/18 08:35 Dose: 2 ml Sodium Chloride (Ns Flush) 2 ml IV.FLUSH PRN PRN PRN Reason: FLUSH AFTER USING IV ACCESS Tramadol HCl (Ultram) 50 mg PO Q4H PRN PRN Reason: PAIN SCALE 3 TO 5 Last Admin: 07/12/18 14:09 Dose: 50 mg Allergies/Adverse Reactions: Allergies Allergy/AdvReac Type Severity Reaction Status Date / Time No Known Allergies Allergy Verified 07/11/18 14:38 Review of Systems All other systems reviewed negative except as stated in HPI Physical Exam Vital signs: Vital Signs 07/11/18 17:44 07/11/18 20:01 07/11/18 20:25 Temperature 97.6 F 98.3 F Pulse Rate 77 74 Respiratory Rate 18 18 18 Blood Pressure 218/84 H 215/98 H Pulse Oximetry 94 L 96 07/11/18 23:21 07/12/18 03:59 07/12/18 07:09 Temperature 98.6 F 98.6 F Pulse Rate 77 77 72 Respiratory Rate 18 16 Blood Pressure 200/90 H 195/84 H Pulse Oximetry 95 95 07/12/18 08:00 07/12/18 09:04 07/12/18 12:00 Temperature 98.1 F 97.9 F Pulse Rate 82 69 Respiratory Rate 16 18 14 Blood Pressure 204/88 H 189/83 H Pulse Oximetry 93 L 92 L 07/12/18 14:39 Temperature Pulse Rate Respiratory Rate 18 Blood Pressure Pulse Oximetry Intake & Output 07/11/18 07/12/18 07/12/18 18:59 06:59 18:59 Intake Total 1720 / 1720 461 / 461 1000 / 1000 Balance 1720 / 1720 461 / 461 1000 / 1000 Weight 81.6 kg Intake: IV 1000 / 1000 1000 / 1000 NS Inj 1,000 ML @ 75 mls/hr IV. 1000 / 1000 1000 / 1000 SIG .[id number] [facility] Rx#:[id number] Oral 720 / 720 461 / 461 Other: # Voids 6 3 Date of Last Bowel Movement 07/08/18 07/08/18 07/11/18 # Bowel Movements 0 Narrative: GENERAL: in NAD, SKIN: Warm and dry. HEAD: Atraumatic. Normocephalic. EYES: Pupils equal and round. No scleral icterus. ENT: No nasal bleeding or discharge. NECK: Trachea midline. No JVD. CARDIOVASCULAR: Regular rate and rhythm. RESPIRATORY: No accessory muscle use. GASTROINTESTINAL: Abdomen soft, non-tender, nondistended. MUSCULOSKELETAL: Extremities without clubbing, cyanosis, or edema. NEUROLOGICAL: Awake and alert. No aphasia, oriented x3 fluent articulate, No facial asymmetry, OU 3-2mm, eomi, VFF, left homonymous hemianopsia, left hemiparesis ue 3/5, le 3-4/5 PSYCHIATRIC: Calm pleasant - Constitutional no acute distress - Routine HEENT Exam Head: Present: normocephalic Eye: Present: EOMI Objective Laboratory Results - last 24 hr 07/11/18 07/11/18 07/12/18 16:36 22:04 07:15 POC Glucose 102 99 92 07/12/18 07/12/18 11:12 16:13 POC Glucose 102 78 Review/Management - Diagnosis (1) Acute right arterial ischemic stroke, MCA (middle cerebral artery) Code(s): I63.511 - Cerebral infarction due to unspecified occlusion or stenosis of right middle cerebral artery Status: Acute Current Visit: Yes (2) CVA (cerebral vascular accident) Code(s): I63.9 - Cerebral infarction, unspecified Status: Acute Current Visit: Yes (3) Hypertensive emergency Code(s): I16.1 - Hypertensive emergency Status: Acute Current Visit: Yes (4) Renal insufficiency Code(s): N28.9 - Disorder of kidney and ureter, unspecified Status: Acute Current Visit: Yes - Review/Management Plan: Mild to moderate size right posterior MCA ischemic infarct. Possibly a couple of very tiny left caudal cerebellar infarcts. Risk factor noncompliance to medical treatment chronic uncontrolled hypertension Aspirin Statin Echo, EF greater than 60%. Carotids no significant vaso-occlusive disease. MRA brain showing distal right MCA probable occlusion 07/11 ct brain reviewed. additional areas of rt sided stroke. ? new left high subcortical infarct Recommendation Neuro stable Low-dose Xanax as needed nightly insomnia repeat mri brain-stable ivf add plavix bp less than 200/100 follow exam Discussed with RN next Rehab placement [facility] or as per insurance Behavioral modification and risk factor reduction. Weight loss, blood pressure control, blood sugar control, lipid control. Exercise
--- NOTE | 2018-07-12 18:08 | P.PNIM ---
Subjective Interval history: f/u visit for acute MC stroke/ right cerebral hemorrhage, Hypertensive emergency, ETOH and SAMANTHA. Pt seen and examined lying in bed, stated feeling better, headache is improving. Denies any headache at this time. Denies any diziness.Denies any fever or chills Physical Exam Vital signs: Vital Signs 07/11/18 20:01 07/11/18 20:25 07/11/18 23:21 Temperature 98.3 F 98.6 F Pulse Rate 74 77 Respiratory Rate 18 18 18 Blood Pressure 215/98 H 200/90 H Pulse Oximetry 96 95 07/12/18 03:59 07/12/18 07:09 07/12/18 08:00 Temperature 98.6 F 98.1 F Pulse Rate 77 72 82 Respiratory Rate 16 16 Blood Pressure 195/84 H 204/88 H Pulse Oximetry 95 93 L 07/12/18 09:04 07/12/18 12:00 07/12/18 14:39 Temperature 97.9 F Pulse Rate 69 Respiratory Rate 18 14 18 Blood Pressure 189/83 H Pulse Oximetry 92 L 07/12/18 16:00 Temperature 97.9 F Pulse Rate 79 Respiratory Rate 16 Blood Pressure 208/91 H Pulse Oximetry 95 Intake & Output 07/11/18 07/12/18 07/12/18 18:59 06:59 18:59 Intake Total 1720 / 1720 461 / 461 1000 / 1000 Balance 1720 / 1720 461 / 461 1000 / 1000 Weight 81.6 kg Intake: IV 1000 / 1000 1000 / 1000 NS Inj 1,000 ML @ 75 mls/hr IV. 1000 / 1000 1000 / 1000 SIG .[id number] [facility] Rx#:[id number] Oral 720 / 720 461 / 461 Other: # Voids 6 3 Date of Last Bowel Movement 07/08/18 07/08/18 07/11/18 # Bowel Movements 0 Narrative: GENERAL: well developed, well nourished, Lady lying in bed , in no acute distress SKIN: Warm and dry. HEAD: Atraumatic. slight left facial droop EYES: Pupils equal and round. No scleral icterus. No injection or drainage. ENT: No nasal bleeding or discharge. Mucous membranes pink and moist. NECK: Trachea midline. No JVD. CARDIOVASCULAR: Regular rate and rhythm. RESPIRATORY: No accessory muscle use. Clear to auscultation. Breath sounds equal bilaterally. GASTROINTESTINAL: Abdomen soft, non-tender, nondistended. Hepatic and splenic margins not palpable. MUSCULOSKELETAL: Extremities without clubbing, cyanosis, or edema. left UE and LE weakness NEUROLOGICAL: Awake and alert and oriented x 3. Generalized weakness with left sided weakness. Normal speech. PSYCHIATRIC: Appropriate mood and affect; insight and judgment normal. Results Labs CBC & Chem 7: 07/11/18 02:08 07/09/18 05:35 Assessment and Plan (1) Acute right arterial ischemic stroke, MCA (middle cerebral artery): Code(s): I63.511 - Cerebral infarction due to unspecified occlusion or stenosis of right middle cerebral artery Status: Acute (2) CVA (cerebral vascular accident): Code(s): I63.9 - Cerebral infarction, unspecified Status: Acute (3) Hypertensive emergency: Code(s): I16.1 - Hypertensive emergency Status: Acute (4) Renal insufficiency: Code(s): N28.9 - Disorder of kidney and ureter, unspecified Status: Acute Plan Patient is a 67-year-old female with a past medical history of hypertension and hyperlipidemia who presented with the ER with complaint of severe headache. Blood pressure was 243/119 on arrival. Patient also endorsed left handed weakness. She has not seen primary care in over 10 years and does not currently take any medications. CVA; right MCA infarct with left hand weakness -Neurology/ Dr Kim following; appreciate assistance -Permissive hypertension; neurochecks; fall precaution -ASA, statin and Plavix -PT/OT ordered -Echo - EF +60%; trace regurg -Carotids not concerning -Labs grossly normal except for lipids -Will need outpatient follow-up with ophthalmology per neurology -Repeat Head CT : Expected evolution of the right posterior MCA and right basal ganglia infarcts. 6 mm right to left subfalcine shift secondary to be associated edema in the right cerebral hemisphere. No superimposed acute intracranial process -Repeat MRI:There is an evolving subacute infarct of the right posterior cerebral artery distribution. The associated restricted diffusion is slightly larger in the interim. There is approximately 4 mm of leftward midline shift. Mild chronic white matter signal changes are stable. -continue IVF Hypertensive emergency -BP elevated, continue permissive hypertension -start on Lisinopril low dose -add PRN antihypertensives for systolic BP > or =190 or DBP > or = 100 Intractable headache -Improved with BP control -Pain control as needed. Stop morphine due to nursing report of increased confusion with use. tramadol instead -No headache today EtOH abuse -endorses 6-8 beers daily -CIWA protocol -Cessation counseled; patient very motivated to quit Acute kidney injury - Cr improving, back to baseline -Resolved with IV fluid -Monitor renal indices DVT prophylaxis: SCD teds Code Status: Full Code Discussed Condition With: Sudhir and Nurse Dr Hill Discharge Planning: Pattern Chain Maker Supervisor to assist with discharge.PT recommend rehab , however pt refusing. Plan for C. Attending Attestation The exam, history, and the medical decision-making described in the above note were completed with the assistance of the mid-level provider Omar Monzon. I reviewed and agree with the findings presented. I attest that I had a face-to- face encounter with the patient on the same day, and personally performed and documented my assessment and findings in the medical record. Patient reports she is feeling better. Left arm is getting stronger. On exam, blood pressure is uncontrolled. Normal S1 and S2. Regular rhythm. Lungs are clear to auscultation bilaterally. Left side with 3+ out of 5 strength. Rest of the major muscle groups 5 out of 5. Generalized weakness. Patient with acute right posterior MCA ischemic infarct. Patient with untreated and uncontrolled hypertension, noncompliant. Appreciate neurology following. On aspirin and Plavix currently. Blood pressure is still uncontrolled. Will start lisinopril. Clonidine as needed for bp >190/100. Suspect she will need more than 1 agent for BP control. Continue to monitor. Progress Note: Quality VTE Deep Vein Thrombosis/Pulmonary Embolism Present on Admission: No _ (1) CVA (cerebral vascular accident) Qualifiers: CVA mechanism: Laterality of affected vessel: Precerebral and cerebral artery:
[2018-07-12] MEDS ORDERED: Lisinopril 20 MG Tablet PO ONE (18:58)
[2018-07-12] MEDS: Sod Chloride 0.9% Inj 1,000 ML IV.CONT SCH ×2 (20:01→21:00)
[2018-07-12] MEDS ORDERED: ALPRAZolam 0.25 MG Tablet PO PRN (21:00)
--- NOTE | 2018-07-13 08:09 | P.PNNEU ---
Subjective Subjective Comments: No cp, no dyspnea, no mahoney. Slept well feels well. Active Medications: Active Medications Acetaminophen (Tylenol) 650 mg PO Q4H PRN PRN Reason: Temp > 100.4 Last Admin: 07/13/18 06:23 Dose: 650 mg Al Hydroxide/Mg Hydroxide (Milk Of Magnesia Liq) 30 ml PO Q12H PRN PRN Reason: Mild Constipation Alprazolam (Xanax) 0.25 mg PO HS PRN PRN Reason: INSOMNIA Aspirin (Aspirin) 325 mg PO DAILY REPLACED BY [facility] Last Admin: 07/12/18 08:34 Dose: 325 mg Bisacodyl (Dulcolax Supp) 10 mg RECTAL DAILY PRN PRN Reason: SEVERE CONSITIPATION Clonidine HCl (Catapres) 0.1 mg PO Q6H PRN PRN Reason: SEE LABEL COMMENTS Clopidogrel Bisulfate (Plavix) 75 mg PO DAILY REPLACED BY [facility] Last Admin: 07/12/18 08:34 Dose: 75 mg Dextrose (D50w Vial) 50 ml IV.PUSH UNSCH PRN PRN Reason: PER HYPOGLYCEMIA PROTOCOL Enalaprilat (Vasotec Inj) 1.25 mg IV.PUSH Q4H PRN PRN Reason: For SBP > 220 or DBP > 120 Last Admin: 07/12/18 18:21 Dose: 1.25 mg Flumazenil (Romazicon Inj) 0.2 mg IV.PUSH Q1M PRN PRN Reason: OVERSEDATION Glucagon (Glucagon Inj) 1 mg OTHER UNSCH PRN PRN Reason: for Hypoglycemia Protocol Sodium Chloride (Ns Inj) 1,000 mls @ 75 mls/hr IV.CONT .[id number] REPLACED BY [facility] Last Admin: 07/12/18 21:00 Dose: 75 mls/hr Insulin Aspart (Novolog Insulin Correctional Sugar Inj) 0 unit SQ ACHS REPLACED BY [facility]; Protocol Last Admin: 07/12/18 21:22 Dose: Not Given Lactulose (Lactulose Liq) 30 ml PO DAILY PRN PRN Reason: SEVERE CONSITIPATION Last Admin: 07/11/18 20:17 Dose: 30 ml Lisinopril (Prinivil) 10 mg PO DAILY REPLACED BY [facility] Last Admin: 07/12/18 10:44 Dose: 10 mg Lorazepam (Ativan) 1 mg PO Q4H PRN PRN Reason: for CIWA 8-10 Lorazepam (Ativan Inj) 2 mg IV.PUSH Q2H PRN PRN Reason: for CIWA 11-14 Lorazepam (Ativan Inj) 2 mg IV.PUSH Q1H PRN PRN Reason: for CIWA 15-20 Lorazepam (Ativan Inj) 2 mg IV.PUSH Q15M PRN PRN Reason: for CIWA > 20 Lorazepam (Ativan Inj) 1 mg IV.PUSH Q4H PRN PRN Reason: for CIWA 8-10 Lorazepam (Ativan) 2 mg PO Q2H PRN PRN Reason: for CIWA 11-14 Naloxone HCl (Narcan Inj) 0.4 mg IV.PUSH UNSCH PRN PRN Reason: SEE LABEL COMMENTS Ondansetron HCl (Zofran Inj) 4 mg IV.PUSH Q6H PRN PRN Reason: NAUSEA OR VOMITING Last Admin: 07/12/18 14:09 Dose: 4 mg Pravastatin Sodium (Pravachol) 40 mg PO HS REPLACED BY [facility] Last Admin: 07/12/18 20:38 Dose: 40 mg Senna/Docusate Sodium (Lizette-Colace) 1 tab PO BID REPLACED BY [facility] Last Admin: 07/12/18 20:38 Dose: 1 tab Sennosides (Senokot) 17.2 mg PO Q12H PRN PRN Reason: Moderate Constipation Last Admin: 07/11/18 20:17 Dose: 17.2 mg Sodium Chloride (Ns Flush) 2 ml IV.FLUSH BID REPLACED BY [facility] Last Admin: 07/12/18 20:38 Dose: 2 ml Sodium Chloride (Ns Flush) 2 ml IV.FLUSH PRN PRN PRN Reason: FLUSH AFTER USING IV ACCESS Tramadol HCl (Ultram) 50 mg PO Q4H PRN PRN Reason: PAIN SCALE 3 TO 5 Last Admin: 07/12/18 14:09 Dose: 50 mg Allergies/Adverse Reactions: Allergies Allergy/AdvReac Type Severity Reaction Status Date / Time No Known Allergies Allergy Verified 07/11/18 14:38 Review of Systems All other systems reviewed negative except as stated in HPI Physical Exam Vital signs: Vital Signs 07/12/18 09:04 07/12/18 12:00 07/12/18 14:39 Temperature 97.9 F Pulse Rate 69 Respiratory Rate 18 14 18 Blood Pressure 189/83 H Pulse Oximetry 92 L 07/12/18 16:00 07/12/18 18:12 07/12/18 19:00 Temperature 97.9 F 97.6 F 97.5 F L Pulse Rate 79 88 77 Respiratory Rate 16 18 18 Blood Pressure 208/91 H 236/99 H 195/90 H Pulse Oximetry 95 96 96 07/12/18 19:12 07/12/18 20:16 07/12/18 21:15 Temperature 97.6 F 98.2 F 98.4 F Pulse Rate 76 93 H 75 Respiratory Rate 18 20 17 Blood Pressure 193/97 H 198/91 H 198/93 H Pulse Oximetry 95 96 07/13/18 01:15 07/13/18 06:15 Temperature 97.7 F 97.7 F Pulse Rate 84 79 Respiratory Rate 18 17 Blood Pressure 215/94 H 181/82 H Pulse Oximetry 94 L 95 Intake & Output 07/12/18 07/13/18 07/13/18 18:59 06:59 18:59 Intake Total 1959 820 / 820 Balance 1959 820 / 820 Weight 80.5 kg Intake: IV 1000 / 1000 NS Inj 1,000 ML @ 75 mls/hr IV. 1000 / 1000 SIG .[id number] [facility] Rx#:[id number] Oral 960 / 960 820 / 820 Other: # Voids 5 3 Date of Last Bowel Movement 07/11/18 07/11/18 # Bowel Movements 0 0 Narrative: GENERAL: in NAD, SKIN: Warm and dry. HEAD: Atraumatic. Normocephalic. EYES: Pupils equal and round. No scleral icterus. ENT: No nasal bleeding or discharge. NECK: Trachea midline. No JVD. CARDIOVASCULAR: Regular rate and rhythm. RESPIRATORY: No accessory muscle use. GASTROINTESTINAL: Abdomen soft, non-tender, nondistended. MUSCULOSKELETAL: Extremities without clubbing, cyanosis, or edema. NEUROLOGICAL: Awake and alert. No aphasia, oriented x3 fluent articulate, No facial asymmetry, OU 3-2mm, eomi, VFF, left homonymous hemianopsia, left hemiparesis ue 3/5, le 3-4/5 PSYCHIATRIC: Calm pleasant - Constitutional no acute distress - Routine HEENT Exam Head: Present: normocephalic Eye: Present: EOMI Objective Laboratory Results - last 24 hr 02/07/12/18 07/12/18 11:12 16:13 21:16 POC Glucose 102 78 96 07/13/18 07:45 POC Glucose 80 Review/Management - Diagnosis (1) Acute right arterial ischemic stroke, MCA (middle cerebral artery) Code(s): I63.511 - Cerebral infarction due to unspecified occlusion or stenosis of right middle cerebral artery Status: Acute Current Visit: Yes (2) CVA (cerebral vascular accident) Code(s): I63.9 - Cerebral infarction, unspecified Status: Acute Current Visit: Yes (3) Hypertensive emergency Code(s): I16.1 - Hypertensive emergency Status: Acute Current Visit: Yes (4) Renal insufficiency Code(s): N28.9 - Disorder of kidney and ureter, unspecified Status: Acute Current Visit: Yes - Review/Management Plan: Mild to moderate size right posterior MCA ischemic infarct. Possibly a couple of very tiny left caudal cerebellar infarcts. Risk factor noncompliance to medical treatment chronic uncontrolled hypertension Aspirin Statin Echo, EF greater than 60%. Carotids no significant vaso-occlusive disease. MRA brain showing distal right MCA probable occlusion 07/11 ct brain reviewed. additional areas of rt sided stroke. ? new left high subcortical infarct Left homonymous hemianopsia, left hemiparesis Recommendation Neuro stable. Doing well Slowly add antihypertensives to keep blood pressure less than 200/100 over the next couple weeks thereafter gradually titrate medications to achieve goal blood pressure of 120/80 or less Low-dose Xanax as needed nightly insomnia repeat mri brain-stable ivf add plavix follow exam Rehab placement [facility] or as per insurance Behavioral modification and risk factor reduction. Weight loss, blood pressure control, blood sugar control, lipid control. Exercise
[2018-07-13] MEDS: Senna/Docusate Sodium 8.6/50 MG Tablet PO SCH (08:18)
[2018-07-13] MEDS: Lisinopril 10 MG Tablet PO SCH (08:18)
[2018-07-13] MEDS: Aspirin 325 MG Tablet PO SCH (08:18)
[2018-07-13] MEDS: Insulin NovoLOG Aspart Correctional Sugar Inj SQ SCH ×3 (08:20→17:24)
[2018-07-13] MEDS: Sod Chloride 0.9% Inj 1,000 ML IV.CONT SCH (08:20)
[2018-07-13] MEDS ORDERED: Lisinopril 20 MG Tablet PO SCH (12:24)
--- NOTE | 2018-07-13 12:27 | P.DS ---
DS: Providers Date of admission: 07/08/18 23:02 Primary care physician: UNKNOWN Consults: 07/08/18 23:08 Consult to Neurology Routine Consulting Provider: Kevin Connell Reason for Consultation: Ischemic Stroke CONSULT FOR AM Notified:: Service Spoke with:: FAHAD Date Notified:: 07/08/18 Time Notified:: 23:15 Ordering Provider: PEREZ 07/11/18 02:23 Consult to Neurology Stat Consulting Provider: Kevin Connell For STAT consult, spoke directly to:: Kevin Connell Reason for Consultation: Brain Attack Spoke with:: Added to list Ordering Provider: VIDAL Brief History from admission: This is a 67-year-old female with a PMH of HTN who presented to the ER with complaints of severe headache. States headache located on the right, severe, 10/10, non-radiating, no visual changes but associated w/ few episodes of nausea/vomiting. No h/o similar symptoms. Also notes left hand weakness, unable to grasp objects earlier today, however resolved by the time EMS arrived. On arrival, BP 243/119, HR 100, O2 sat 98% on RA, Afebrile. S/p Hydralazine and Lopressor x2 in ER. CBC unremarkable. Gotten 1.26, no previous labs for comparison. CT Head with low density at lateral right parietal lobe possibly subacute infarct versus underlying mass. MRI Head acute infarct involving posterior right middle cerebral artery. CXR with no acute findings. DS: Diagnosis Discharge Diagnosis (1) Acute right arterial ischemic stroke, MCA (middle cerebral artery): Status: Acute (2) CVA (cerebral vascular accident): Status: Acute (3) Hypertensive emergency: Status: Acute (4) Renal insufficiency: Status: Acute DS: Summary Patient is a 67-year-old female with a past medical history of hypertension and hyperlipidemia who presented with the ER with complaint of severe headache. Blood pressure was 243/119 on arrival. Patient also endorsed left handed weakness. She has not seen primary care in over 10 years and does not currently take any medications. CVA Right MCA infarct with left hand weakness -Neurology/ Dr Kim following; appreciate assistance -Permissive hypertension; neurochecks; fall precaution -continue ASA, statin and Plavix -PT/OT ordered -Echo - EF +60%; trace regurg -Carotids not concerning -Labs grossly normal except for lipids -Will need outpatient follow-up with ophthalmology per neurology -Repeat Head CT : Expected evolution of the right posterior MCA and right basal ganglia infarcts. 6 mm right to left subfalcine shift secondary to be associated edema in the right cerebral hemisphere. No superimposed acute intracranial process -Repeat MRI:There is an evolving subacute infarct of the right posterior cerebral artery distribution. The associated restricted diffusion is slightly larger in the interim. There is approximately 4 mm of leftward midline shift. Mild chronic white matter signal changes are stable. -d/c IVF, pt tolerating PO well Hypertensive emergency -BP elevated, continue permissive hypertension -increase Lisinopril dose -continue PRN antihypertensives for systolic BP > or =190 or DBP > or = 100 -BP goal SBP >160 for at least 2 weeks Intractable headache -Improved with BP control -Pain control as needed. Stop morphine due to nursing report of increased confusion with use. tramadol instead -No headache today EtOH abuse -endorses 6-8 beers daily -CIWA protocol -Cessation counseled; patient very motivated to quit Acute kidney injury - Cr improving, back to baseline -Resolved with IV fluid -Monitor renal indices DVT prophylaxis: SCD teds Code Status: Full Code Discussed Condition With: Patient, family and Nurse. Discussed with Dr Johnson Discussed with Pt and family discharge planning to Inpatient Rehabilitation. Pt and family agreed. Time Spent with Patient Total time spent providing and/or coordinating discharge services: Greater than 30 minutes Quality: VTE Deep Vein Thrombosis/Pulmonary Embolism Present on Admission: No Exam Narrative Exam Narrative: GENERAL: Well-developed, well-nourished, female sitting in the chair, in no acute distress SKIN: Warm and dry. HEAD: Atraumatic. Normocephalic. EYES: Pupils equal and round. No scleral icterus. No injection or drainage. ENT: No nasal bleeding or discharge. Mucous membranes pink and moist. NECK: Trachea midline. No JVD. CARDIOVASCULAR: Regular rate and rhythm. RESPIRATORY: No accessory muscle use. Clear to auscultation. Breath sounds equal bilaterally. GASTROINTESTINAL: Abdomen obese, soft, non-tender, nondistended. Hepatic and splenic margins not palpable. MUSCULOSKELETAL: Extremities without clubbing, cyanosis. Right hand edema. Right upper extremity and lower extremity weakness NEUROLOGICAL: Awake and alert. And oriented x3. Generalized weakness, moving all 4 extremities except left sided weakness normal speech. PSYCHIATRIC: Appropriate mood and affect; insight and judgment normal. Results Labs on day of discharge: Labs from last 24 hours 07/13/18 07/13/18 07/12/18 11:15 07:45 21:16 POC Glucose 78 80 96 07/12/18 16:13 POC Glucose 78 Impressions ITS Impressions Chest X-Ray 07/08/18 16:46 CONCLUSION: No acute cardiopulmonary disease. Abdomen X-Ray 07/08/18 19:24 CONCLUSION: Negative KUB. No metallic densities are seen. Carotid Doppler Study 07/09/18 10:12 CONCLUSION: No evidence of flow-limiting carotid stenosis. Head MRA 07/09/18 10:12 CONCLUSION: 1. There is nonfilling and irregularity of the distal right middle cerebral artery and right proximal posterior cerebral artery. Head MRI 07/11/18 00:00 CONCLUSION: 1. There is an evolving subacute infarct of the right posterior cerebral artery distribution. The associated restricted diffusion is slightly larger in the interim. There is approximately 4 mm of leftward midline shift. 2. Mild chronic white matter signal changes are stable. Head CT 07/11/18 02:06 CONCLUSION: 1. Expected evolution of the right posterior MCA and right basal ganglia infarcts. 2. 6 mm right to left subfalcine shift secondary to be associated edema in the right cerebral hemisphere. 3. No superimposed acute intracranial process. Report was called by Dr. Torres to Dr. Connell at 0228 hours. Discharge Plan Discharge Disposition Patient Disposition: [facility] Inpatient Discharge Order Discharge Orders: Discharge Order (Routine); Ordered 07/13/18 Ordered By: Na Bansal [place] Discharge Details Anticipated Discharge Date: 07/13/18 Physicians Team Primary Care Provider: UNKNOWN, Attending Provider: Daina Hill Other Providers: Kevin Connell Rxs /Orders / Referrals /Forms Prescriptions: New clopidogrel [Plavix] 75 mg Tablet 75 mg PO DAILY Qty: 30 RF: 0 clonidine HCl [Catapres] 0.1 mg Tablet 0.1 mg PO Q6H PRN (Reason: See Label Comments) Qty: 30 RF: 0 acetaminophen 325 mg Tablet 650 mg PO Q4H PRN (Reason: Temp > 100.4) Qty: 14 RF: 0 pravastatin 40 mg Tablet 40 mg PO HS Qty: 30 RF: 0 alprazolam [Xanax] 0.25 mg Tablet 0.25 mg PO HS PRN (Reason: Insomnia) Qty: 7 RF: 0 aspirin 325 mg Tablet 325 mg PO DAILY Qty: 30 RF: 0 tramadol [Ultram] 50 mg Tablet 50 mg PO Q4H PRN (Reason: Pain Scale 3 To 5) Qty: 14 RF: 0 sennosides-docusate sodium [Senna Plus] 8.6-50 mg Tablet 1 tab PO BID Qty: 60 RF: 0 lisinopril 10 mg Tablet 20 mg PO DAILY Qty: 60 RF: 0 Referrals: UNKNOWN, [Primary Care Provider] - See Instructions Discharge Instructions Patient Printed Instructions: Heart Healthy Diet (DC), Hypertension (DC), Right Hemispheric Stroke (DC) Additional Instructions: TAKE MEDICATIONS PRESCRIBED Post Discharge Care Plan Care Plan Goals: Discharge Care Plan Goals for Stroke You have been diagnosed with or have a high risk for a stroke, or a TIA ( transient ischemic attack). During a stroke, blood stops flowing to part of your brain. This can damage areas in the brain that control other parts of the body. Symptoms after a stroke depend on which part of the brain has been affected. Directions to Meet your Goals: 1. Diet: Based on your situation, your doctor will direct you to make changes in your diet. Some of the changes may include: * Reducing the amount of fat and cholesterol you eat * Don't add salt to your food. * Eat more fresh vegetables and fruits * Eat more lean proteins, such as fish, poultry, and beans and peas (legumes). Cut down on red meat & processed meats * Use low-fat dairy products * Limit vegetable oils and nut oils. Avoid any food that has hydrogenated listed in its ingredients. * Limit sweets and processed foods such as chips, cookies, and baked goods 2. Prevent Falls/Injury: You may be at risk of falling. Activity: * Keep your surrounding clutter free to help you walk more easily. * Your doctor and therapist may decide if you need an assistive device to walk safely. Shower/Bathing: * Test the water temperature with a hand or foot that was not affected by the stroke. * Use grab bars, a shower seat, a hand-held showerhead, and a long-handled brush. Getting Dressed: * Dress while sitting, starting with the affected side or limb. * Wear shirts that pull easily over your head. Wear pants or skirts with elastic waistbands. * Use zippers with loops attached to the pull tabs. 3. Lifestyle Modifications: * Take your medicines exactly as prescribed. Dont skip doses. * Begin an exercise program as directed by your doctor. You can benefit from simple activities such as walking or gardening. * Limit how much alcohol you drink. Men should have no more than 2 alcoholic drinks a day. Women should limit themselves to 1 alcoholic drink per day. * Know your cholesterol level. Follow your doctor's recommendations about how to keep cholesterol under control. * If you are a smoker, quit now. Joining a stop-smoking program will improve your chances of success. Ask your doctor for medicines or other methods to help you quit. * Learn stress management techniques to help you deal with stress in your home and work life. 4. Stroke Risk Factors: Once youve had a stroke, youre at greater risk for another one. Listed below are some other factors that can increase your risk for a stroke: * High blood pressure and High Cholesterol * Cigarette or cigar smoking * Diabetes * Carotid or other artery disease * Atrial fibrillation, atrial flutter, or other heart disease * Not being physically active * Obesity * Certain blood disorders such as sickle cell anemia * Drinking too much alcohol * Abusing street drugs * Race * Gender * Family history of stroke * Diet high in salty, fried, or greasy foods 5. Follow-up: * Keep your medical appointments. Close follow-up is important to stroke rehabilitation and recovery. * Some medicines require blood tests to check for progress or problems. Keep follow-up appointments for any blood tests ordered by your providers. Call 911 right away if you have: Weakness, tingling, or loss of feeling on one side of your face or body Sudden double vision or trouble seeing in one or both eyes Sudden trouble talking or slurred speech Trouble understanding others Sudden, severe headache Dizziness, loss of balance, or a sense of falling Blackouts or seizures F.A.S.T. is an easy way to remember the signs of stroke. When you see these signs, you know that you need to call 911 fast. F.A.S.T. stands for: * F is for face drooping. One side of the face is drooping or numb. When the person smiles, the smile is uneven. * A is for arm weakness. One arm is weak or numb. When the person lifts both arms at the same time, one arm may drift downward. * S is for speech difficulty. You may notice slurred speech or trouble speaking. The person can't repeat a simple sentence correctly when asked. * T is for time to call 911. If someone shows any of these symptoms, even if they go away, call 911 right away. Make note of the time the symptoms first appeared. Status ED Status: Left Department
[2018-07-13 16:43] VITALS: BP 200/88; PULSE 69; RESP 18; TEMP 97.9; O2SAT 98
== END 2018-07-13 17:35 | DRG 64 ==
LOC: NEPC 14:12 → NEDA 23:02 → N06 07-09
PROVIDERS: ADMIT Family Medicine; ATTEND Family Medicine
DX: N17.9 Acute kidney failure, unspecified; I16.1 Hypertensive emergency; I63.531 Cerebral infarction due to unspecified occlusion or stenosis of right posterior cerebral artery; G47.00 Insomnia, unspecified; Z79.899 Other long term (current) drug therapy; G81.94 Hemiplegia, unspecified affecting left nondominant side; Z91.19 Patient's noncompliance with other medical treatment and regimen; Z87.891 Personal history of nicotine dependence; H53.462 Homonymous bilateral field defects, left side; I63.511 Cerebral infarction due to unspecified occlusion or stenosis of right middle cerebral artery; Z79.02 Long term (current) use of antithrombotics/antiplatelets; Z79.82 Long term (current) use of aspirin; E78.5 Hyperlipidemia, unspecified; F10.10 Alcohol abuse, uncomplicated; Z88.5 Allergy status to narcotic agent; G93.6 Cerebral edema; I61.9 Nontraumatic intracerebral hemorrhage, unspecified; I10 Essential (primary) hypertension
CPT/HCPCS: 70450; 70544; 70551; 70553; 71010; 71045; 74000; 74018; 80053; 80061; 82435; 82550; 82565; 82947; 82948; 82962; 83036; 84132; 84295; 84484; 84520; 85025; 85384; 85610; 85730; 86850; 86900; 86901; 90774; 90775; 90776; 90784; 93005; 93306; 93880; 96374; 96375; 96376; 97110; 97116; 97162; 97167; 97168; 97530; 99285; A9585; C8952; J0360; J1100; J2150; J2270; J2405; J7030